=== PATIENT | male | born 1940 | race Caucasian/White ===

== ENCOUNTER 2019-06-22 20:06 | Emergency (ER) | payer MEDICARE, OTHER ==
[~2019-06-22] VITALS: Ht 193 cm; Wt 112.5 kg
[~2019-06-22 20:06] MED LIST: ASPI81CH PO; Bactrim Ds Tab1 EACH PO; CEPH500; CEPH500 PO; CIPR500 PO; DOXA4; EZET10; FINA5 PO; FISH1000 PO; GABA300; GLIP10 PO; GLUCOPHAGE; HYDR1TAB94 PO; INDERAL; INDO25 PO; INSLIS75I; JANUMET; LIRA0.6P PO; METF500; METF500 PO; NIAC500 PO; Norco 10-325 T1 EACH PO; OMEP20ER PO; Omeprazole20 M1 PO; RAMI1.25; RAMI5 PO; ROSI4; ROSU10TA; ROSU10TA PO; SENN187 PO; SULTRIDS PO; TAMS.4ER PO; VICTOZA
[2019-06-22] MEDS ORDERED: LIRA0.6P SC (20:22)
[2019-06-22 20:44] LABS: BASOPHILS ABSOLUTE AUTO 0.03 K/mm3 (0.00-0.23); BASOPHILS PERCENT AUTO 0 % (0-2); EOSINOPHILS ABSOLUTE AUTO 0.06 K/mm3 (0.00-0.68); EOSINOPHILS PERCENT AUTO 1 % (0-6); Hematocrit 50.9 % (37.0-53.0); Hemoglobin 16.3 g/dL (13.5-17.5); IMMATURE GRAN ABSOLUTE AUTO 0.04 K/mm3 (0.00-0.10); IMMATURE GRAN PERCENT AUTO 1 % (0-1); LYMPHOCYTES ABSOLUTE AUTO 1.07 K/mm3 (0.84-5.20); LYMPHOCYTES PERCENT AUTO 13 % (21-46); MONOCYTES ABSOLUTE AUTO 0.44 K/mm3 (0.16-1.47); MONOCYTES PERCENT AUTO 5 % (4-13); Mean Corpuscular HGB 28.7 pg (26.0-34.0); Mean Corpuscular Volume 90 fL (80-100); Mean Platelet Volume 9.1 fL (9.1-12.4); NEUTROPHILS ABSOLUTE AUTO 6.84 K/mm3 (1.96-9.15); NEUTROPHILS PERCENT AUTO 81 % (41-73); Platelet Count 154 K/mm3 (150-400); RDW Standard Deviation 46.2 fL (35.1-46.3); Red Blood Cell Count 5.68 M/mm3 (4.30-5.90); White Blood Cell Count 8.48 K/mm3 (4.00-11.30)
[2019-06-22 21:02] LABS: Alanine Aminotransfer (ALT/SGP 22 U/L (12-78); Albumin, Blood 3.8 g/dL (3.4-5.0); Alk Phos 94 U/L (50-136); Anion Gap 8 mmol/L (6-16); Aspartate Aminotrans (AST/SGOT 12 U/L (12-37); Bilirubin, Total 0.8 mg/dL (0.1-1.0); Blood Urea Nitrogen 17 mg/dL (8-24); Bun/Creatinine Ratio 23.1 (12.0-20.0); CO2, Blood 21 mmol/L (21-32); Calcium, Blood 9.7 mg/dL (8.5-10.1); Chloride, Blood 110 mmol/L (98-108); Creatinine, Blood 0.74 mg/dL (0.60-1.20); Globulin, Blood 3.7 g/dL (2.2-4.0); Glomerular Filtration Rate >60 (60-); Glucose, Blood 190 mg/dL (70-99); Potassium, Blood 3.9 mmol/L (3.5-5.5); Sodium, Blood 139 mmol/L (136-145); Total Protein, Blood 7.5 g/dL (6.4-8.2)
[2019-06-22] MEDS ORDERED: Zofran4 MG PO (22:07)
[2019-06-22] MEDS ORDERED: MOTION RELIEF25 MG PO (22:07)
== END 2019-06-22 22:30 | disposition home or self-care (01) ==
LOC: ER 20:06
PROVIDERS: Emergency Medicine
DX: H81.399 Other peripheral vertigo, unspecified ear (principal); I10 Essential (primary) hypertension; E11.9 Type 2 diabetes mellitus without complications; Z79.899 Other long term (current) drug therapy; Z79.84 Long term (current) use of oral hypoglycemic drugs; Z87.891 Personal history of nicotine dependence
CPT/HCPCS: 36415; 80053; 85025; 93005; 93010; 96374; 99284-25; J0780

== ENCOUNTER → 2019-11-04 | Outpatient (CLI) | payer MEDICARE, OTHER ==
[~2019-11-04] MED LIST changes: +LIRA0.6P SC; +MOTION RELIEF25 MG PO; +Zofran4 MG PO
== END ==
LOC: LAB EV 17:00 → LAB SHORT 17:00
DX: N30.00 Acute cystitis without hematuria (principal)
CPT/HCPCS: 87077; 87086; 87186

== ENCOUNTER → 2020-05-11 | Outpatient (CLI) | payer MEDICARE, OTHER ==
[2020-05-11 11:50] LABS: Source, Urine Clean Catch
[2020-05-11 11:57] LABS: Appearance, Urine Cloudy (Clear); Bilirubin, Urine Neg (Neg); Blood, Urine 1+ (Neg); Color, Urine Yellow (P-Yellow); Glucose Qualitative, Urine Neg (Normal); Ketones, Urine Neg (Neg); Leukocyte Esterase, Urine 2+ (Neg); Nitrite, Urine Pos (Neg); Protein, Urine Trace (Neg); Urobilinogen, Urine NORM (Normal)
[2020-05-11 12:10] LABS: Bacteria Mod /hpf; Mucus Light (0-Heavy); Squamous Epithelial Cells Rare /hpf (Few); White Blood Cells, Urine 50-100 /hpf (0-5)
[2020-05-11 12:11] LABS: Transitional Epithelial Cells Rare /hpf (0-Rare)
== END ==
LOC: LAB SHORT 10:30 → LAB EV 10:30
PROVIDERS: Physician Assistant
DX: R31.0 Gross hematuria (principal)
CPT/HCPCS: 81001; 87077; 87086; 87186

== ENCOUNTER 2020-07-20 13:42 | Inpatient (IN) | payer MEDICARE, OTHER ==
[~2020-07-20] VITALS: Ht 193 cm; Wt 112.2 kg
[~2020-07-20 13:42] MED LIST changes: -LIRA0.6P SC; -METF500 PO; -Omeprazole20 M1 PO
[2020-07-20 14:57] LABS: BASOPHILS ABSOLUTE AUTO 0.02 K/mm3 (0.00-0.23); BASOPHILS PERCENT AUTO 0 % (0-2); EOSINOPHILS ABSOLUTE AUTO 0.12 K/mm3 (0.00-0.68); EOSINOPHILS PERCENT AUTO 2 % (0-6); Hematocrit 46.5 % (37.0-53.0); Hemoglobin 14.1 g/dL (13.5-17.5); IMMATURE GRAN ABSOLUTE AUTO 0.02 K/mm3 (0.00-0.10); IMMATURE GRAN PERCENT AUTO 0 % (0-1); LYMPHOCYTES ABSOLUTE AUTO 1.39 K/mm3 (0.84-5.20); LYMPHOCYTES PERCENT AUTO 23 % (21-46); MONOCYTES ABSOLUTE AUTO 0.38 K/mm3 (0.16-1.47); MONOCYTES PERCENT AUTO 6 % (4-13); Mean Corpuscular HGB 27.2 pg (26.0-34.0); Mean Corpuscular HGB Conc 30.3 g/dL (31.5-36.5); Mean Corpuscular Volume 90 fL (80-100); Mean Platelet Volume 9.9 fL (9.1-12.4); NEUTROPHILS ABSOLUTE AUTO 4.12 K/mm3 (1.96-9.15); NEUTROPHILS PERCENT AUTO 68 % (41-73); Platelet Count 158 K/mm3 (150-400); RDW Coefficient Variation 14.6 % (11.7-14.2); RDW Standard Deviation 47.6 fL (35.1-46.3); Red Blood Cell Count 5.19 M/mm3 (4.30-5.90); White Blood Cell Count 6.05 K/mm3 (4.00-11.30)
[2020-07-20 15:02] LABS: Alanine Aminotransfer (ALT/SGP 14 U/L (12-78); Albumin, Blood 3.5 g/dL (3.4-5.0); Albumin/Globulin Ratio 1.1 (0.8-1.8); Alk Phos 72 U/L (50-136); Anion Gap 6 mmol/L (6-16); Aspartate Aminotrans (AST/SGOT 10 U/L (12-37); Bilirubin, Total 0.9 mg/dL (0.1-1.0); Blood Urea Nitrogen 14 mg/dL (8-24); Bun/Creatinine Ratio 14.2 (12.0-20.0); CO2, Blood 26 mmol/L (21-32); Calcium, Blood 9.2 mg/dL (8.5-10.1); Chloride, Blood 114 mmol/L (98-108); Creatinine, Blood 0.99 mg/dL (0.60-1.20); Globulin, Blood 3.3 g/dL (2.2-4.0); Glomerular Filtration Rate >60 (60-); Glucose, Blood 163 mg/dL (70-99); Potassium, Blood 4.1 mmol/L (3.5-5.5); Sodium, Blood 146 mmol/L (136-145); Total Protein, Blood 6.8 g/dL (6.4-8.2); Troponin I <0.015 ng/mL (0.000-0.040)
[2020-07-20] MEDS ORDERED: HYDROCODONE-AC1 EA10 PO (15:13)
[2020-07-20] MEDS ORDERED: VICTOZA 2-0.6 MG/0.1 SC (15:14)
[2020-07-20] MEDS ORDERED: TAMSULOSIN HCL0.4 M1 PO (15:15)
[2020-07-20] MEDS ORDERED: METF500C PO (15:16)
[2020-07-20] MEDS ORDERED: METFORMIN HCL500 M3 PO (15:16)
[2020-07-20] MEDS ORDERED: Omeprazole20 M1 PO (15:17)
[2020-07-20] MEDS ORDERED: Crestor20 MG PO (15:18)
[2020-07-20] MEDS ORDERED: LISINOPRIL2.5 MG PO (15:18)
[2020-07-20] MEDS ORDERED: GLIP10 PO (15:40)
[2020-07-20 16:03] LABS: Influenza A, PCR Negative (NEGATIVE); Influenza B, PCR Negative (NEGATIVE); Resp Syncytial Virus, PCR Negative (NEGATIVE); SARS-Cov-2 (COVID-19) PCR, MMC Negative (NEGATIVE)
[2020-07-21 03:51] LABS: BASOPHILS ABSOLUTE AUTO 0.02 K/mm3 (0.00-0.23); BASOPHILS PERCENT AUTO 0 % (0-2); EOSINOPHILS PERCENT AUTO 3 % (0-6); Hematocrit 41.4 % (37.0-53.0); Hemoglobin 12.9 g/dL (13.5-17.5); IMMATURE GRAN ABSOLUTE AUTO 0.02 K/mm3 (0.00-0.10); IMMATURE GRAN PERCENT AUTO 0 % (0-1); LYMPHOCYTES ABSOLUTE AUTO 1.67 K/mm3 (0.84-5.20); LYMPHOCYTES PERCENT AUTO 28 % (21-46); MONOCYTES ABSOLUTE AUTO 0.51 K/mm3 (0.16-1.47); MONOCYTES PERCENT AUTO 8 % (4-13); Mean Corpuscular HGB 27.6 pg (26.0-34.0); Mean Corpuscular HGB Conc 31.2 g/dL (31.5-36.5); Mean Corpuscular Volume 89 fL (80-100); Mean Platelet Volume 9.7 fL (9.1-12.4); NEUTROPHILS ABSOLUTE AUTO 3.66 K/mm3 (1.96-9.15); NEUTROPHILS PERCENT AUTO 60 % (41-73); Platelet Count 141 K/mm3 (150-400); RDW Coefficient Variation 14.6 % (11.7-14.2); RDW Standard Deviation 47.1 fL (35.1-46.3); Red Blood Cell Count 4.67 M/mm3 (4.30-5.90); White Blood Cell Count 6.08 K/mm3 (4.00-11.30)
[2020-07-21 04:12] LABS: Anion Gap 5 mmol/L (6-16); Blood Urea Nitrogen 15 mg/dL (8-24); CO2, Blood 26 mmol/L (21-32); Calcium, Blood 8.9 mg/dL (8.5-10.1); Chloride, Blood 113 mmol/L (98-108); Creatinine, Blood 0.94 mg/dL (0.60-1.20); Glomerular Filtration Rate >60 (60-); Glucose, Blood 146 mg/dL (70-99); Potassium, Blood 4.1 mmol/L (3.5-5.5); Sodium, Blood 144 mmol/L (136-145)
[2020-07-22] MEDS ORDERED: LISI20 PO (14:02)
[2020-07-22] MEDS ORDERED: NIFE30ER PO (14:05)
[2020-07-23 10:12] LABS: LYME IGG/IGM AB <0.91 ISR (0.00-0.90)
== END 2020-07-22 14:47 | disposition home or self-care (01) | DRG 242 ==
LOC: ER 13:42 → PCU 16:38
PROVIDERS: Emergency Medicine; ADMIT Internal Medicine
PROC: 0JH606Z Insertion of Pacemaker, Dual Chamber into Chest Subcutaneous Tissue and Fascia, Open Approach (ICD-10-PCS; principal; 2020-07-21)
PROC: 02HK3JZ Insertion of Pacemaker Lead into Right Ventricle, Percutaneous Approach (ICD-10-PCS; 2020-07-21)
PROC: 02H63JZ Insertion of Pacemaker Lead into Right Atrium, Percutaneous Approach (ICD-10-PCS; 2020-07-21)
PROC: 3E0102A Introduction of Anti-Infective Envelope into Subcutaneous Tissue, Open Approach (ICD-10-PCS; 2020-07-21)
DX: I44.2 Atrioventricular block, complete (principal); I50.33 Acute on chronic diastolic (congestive) heart failure; E11.9 Type 2 diabetes mellitus without complications; G47.00 Insomnia, unspecified; K21.9 Gastro-esophageal reflux disease without esophagitis; Z87.891 Personal history of nicotine dependence; Z79.84 Long term (current) use of oral hypoglycemic drugs; I27.20 Pulmonary hypertension, unspecified; I08.3 Combined rheumatic disorders of mitral, aortic and tricuspid valves; Z20.828 Contact with and (suspected) exposure to other viral communicable diseases; E78.5 Hyperlipidemia, unspecified; N40.1 Benign prostatic hyperplasia with lower urinary tract symptoms; R33.9 Retention of urine, unspecified; I11.0 Hypertensive heart disease with heart failure
CPT/HCPCS: 0241U; 33208; 36415; 51701; 71045; 71046; 76937; 80048; 80053; 82947; 83605; 83735; 83880; 84443; 84484; 85025; 86618; 87040; 93005; 93010; 93306; 94762; 96365; 96366; 99152; 99153; 99285-25; A9270; C1781; C1785; C1894; C1898; J0360; J0461; J0690; J1644; J2250; J3010; J3475; J7030; J7040

== ENCOUNTER 2020-09-18 16:04 | Inpatient (IN) | payer MEDICARE, OTHER ==
[~2020-09-18] VITALS: Ht 193 cm; Wt 108.5 kg
[~2020-09-18 16:04] MED LIST changes: +Crestor20 MG PO; +HYDROCODONE-AC1 EA10 PO; +LISI20 PO; +LISINOPRIL2.5 MG PO; +METF500C PO; +METFORMIN HCL500 M3 PO; +NIFE30ER PO; +Omeprazole20 M1 PO; +TAMSULOSIN HCL0.4 M1 PO; +VICTOZA 2-0.6 MG/0.1 SC
[2020-09-18 17:16] LABS: BASOPHILS ABSOLUTE AUTO 0.04 K/mm3 (0.00-0.23); BASOPHILS PERCENT AUTO 0 % (0-2); EOSINOPHILS ABSOLUTE AUTO 0.03 K/mm3 (0.00-0.68); EOSINOPHILS PERCENT AUTO 0 % (0-6); Hematocrit 46.2 % (37.0-53.0); Hemoglobin 14.5 g/dL (13.5-17.5); IMMATURE GRAN ABSOLUTE AUTO 0.07 K/mm3 (0.00-0.10); IMMATURE GRAN PERCENT AUTO 1 % (0-1); LYMPHOCYTES ABSOLUTE AUTO 1.67 K/mm3 (0.84-5.20); LYMPHOCYTES PERCENT AUTO 13 % (21-46); MONOCYTES ABSOLUTE AUTO 1.43 K/mm3 (0.16-1.47); MONOCYTES PERCENT AUTO 11 % (4-13); Mean Corpuscular HGB 27.5 pg (26.0-34.0); Mean Corpuscular HGB Conc 31.4 g/dL (31.5-36.5); Mean Corpuscular Volume 88 fL (80-100); Mean Platelet Volume 9.5 fL (9.1-12.4); NEUTROPHILS ABSOLUTE AUTO 9.36 K/mm3 (1.96-9.15); NEUTROPHILS PERCENT AUTO 74 % (41-73); Platelet Count 175 K/mm3 (150-400); RDW Coefficient Variation 15.4 % (11.7-14.2); RDW Standard Deviation 48.7 fL (35.1-46.3); Red Blood Cell Count 5.27 M/mm3 (4.30-5.90)
[2020-09-18 17:35] LABS: Alanine Aminotransfer (ALT/SGP 15 U/L (12-78); Albumin, Blood 3.6 g/dL (3.4-5.0); Albumin/Globulin Ratio 0.9 (0.8-1.8); Alk Phos 81 U/L (50-136); Anion Gap 8 mmol/L (6-16); Aspartate Aminotrans (AST/SGOT 15 U/L (12-37); Bilirubin, Total 1.2 mg/dL (0.1-1.0); Blood Urea Nitrogen 29 mg/dL (8-24); Bun/Creatinine Ratio 26.9 (12.0-20.0); CO2, Blood 22 mmol/L (21-32); Calcium, Blood 9.7 mg/dL (8.5-10.1); Chloride, Blood 105 mmol/L (98-108); Creatinine, Blood 1.08 mg/dL (0.60-1.20); Globulin, Blood 4.2 g/dL (2.2-4.0); Glomerular Filtration Rate >60 (60-); Glucose, Blood 152 mg/dL (70-99); Potassium, Blood 4.2 mmol/L (3.5-5.5); Sodium, Blood 135 mmol/L (136-145); Total Protein, Blood 7.8 g/dL (6.4-8.2); Troponin I <0.015 ng/mL (0.000-0.040)
[2020-09-18] MEDS ORDERED: ASCO500 PO (20:59)
[2020-09-18] MEDS ORDERED: THERA-D2000 UNIT PO (20:59)
[2020-09-18] MEDS ORDERED: MAGNESIUM OXID500 MG PO (21:00)
[2020-09-18] MEDS ORDERED: MULVITA PO (21:00)
[2020-09-18 23:27] LABS: Source, Urine Clean Catch
[2020-09-18 23:32] LABS: Appearance, Urine Cloudy (Clear); Bilirubin, Urine Neg (Neg); Blood, Urine 4+ (Neg); Color, Urine Yellow (P-Yellow); Glucose Qualitative, Urine Neg (Neg); Ketones, Urine 3+ (Neg); Leukocyte Esterase, Urine 3+ (Neg); Nitrite, Urine Pos (Neg); Protein, Urine 3+ (Neg); Urobilinogen, Urine NORM (Normal)
[2020-09-18 23:39] LABS: Red Blood Cells, Urine 0-2 /hpf (0-2); White Blood Cells, Urine TNTC /hpf (0-5)
[2020-09-18 23:40] LABS: Bacteria Many /hpf; Squamous Epithelial Cells Few /hpf (Few)
--- NOTE | 2020-09-19 00:02 | NUR ---
ATTEMPTED TO CALL CONSULT CALLED OFFICE OF CONSULTING ORTHO PHYSICIAN. NO ANSWERING SERVICE NUMBER PROVIDED. I WILL PASS THIS CONSULT CALL ON TO DAYSHIFT RN.
[2020-09-19 01:01] LABS: BASOPHILS ABSOLUTE AUTO 0.02 K/mm3 (0.00-0.23); BASOPHILS PERCENT AUTO 0 % (0-2); EOSINOPHILS PERCENT AUTO 0 % (0-6); Hematocrit 43.2 % (37.0-53.0); Hemoglobin 13.9 g/dL (13.5-17.5); IMMATURE GRAN ABSOLUTE AUTO 0.04 K/mm3 (0.00-0.10); IMMATURE GRAN PERCENT AUTO 0 % (0-1); LYMPHOCYTES PERCENT AUTO 9 % (21-46); MONOCYTES ABSOLUTE AUTO 0.93 K/mm3 (0.16-1.47); MONOCYTES PERCENT AUTO 10 % (4-13); Mean Corpuscular HGB 27.7 pg (26.0-34.0); Mean Corpuscular HGB Conc 32.2 g/dL (31.5-36.5); Mean Corpuscular Volume 86 fL (80-100); Mean Platelet Volume 8.8 fL (9.1-12.4); NEUTROPHILS ABSOLUTE AUTO 7.26 K/mm3 (1.96-9.15); NEUTROPHILS PERCENT AUTO 80 % (41-73); Platelet Count 149 K/mm3 (150-400); RDW Coefficient Variation 15.1 % (11.7-14.2); RDW Standard Deviation 47.8 fL (35.1-46.3); Red Blood Cell Count 5.01 M/mm3 (4.30-5.90); White Blood Cell Count 9.05 K/mm3 (4.00-11.30)
[2020-09-19 01:43] LABS: Alanine Aminotransfer (ALT/SGP 13 U/L (12-78); Albumin/Globulin Ratio 0.7 (0.8-1.8); Alk Phos 74 U/L (50-136); Anion Gap 9 mmol/L (6-16); Aspartate Aminotrans (AST/SGOT 8 U/L (12-37); Blood Urea Nitrogen 29 mg/dL (8-24); Bun/Creatinine Ratio 26.4 (12.0-20.0); CO2, Blood 22 mmol/L (21-32); CPK Creatine Kinase 131 U/L (39-308); Calcium, Blood 9.4 mg/dL (8.5-10.1); Chloride, Blood 105 mmol/L (98-108); Globulin, Blood 4.2 g/dL (2.2-4.0); Glomerular Filtration Rate >60 (60-); Glucose, Blood 159 mg/dL (70-99); Potassium, Blood 4.6 mmol/L (3.5-5.5); Sodium, Blood 136 mmol/L (136-145); Total Protein, Blood 7.2 g/dL (6.4-8.2); Troponin I <0.015 ng/mL (0.000-0.040)
--- NOTE | 2020-09-19 03:48 | NUR ---
ADMIT NOTE *LATE ENTRY* HANDOFF RECEIVED FROM ER NURSE JESUS. PT TRANSPORTED TO FLOOR VIA GURNEY. PT ORIENTED TO UNIT. TELEMETRY APPLIED TO PT. IV FLUIDS ARE INFUSING ORDERED. CALL BUTTON IS WITHIN REACH. PERSONAL POSSESSIONS IN ROOM WITH PT.
--- NOTE | 2020-09-19 04:04 | NUR ---
SHIFT SUMMARY ADMITTED FOR BILAT KNEE PAIN/IMMOBILITY THIS SHIFT. FULL CODE. TELEMETRY: PACED @ [address] IV PAIN MEDICATION AVAILABLE IN EMAR. PT HAS NOT BEEN ABLE TO AMBULATE SINCE DAY AFTER FALL, WHEN HE SAID HE "HYPEREXTENDED" BOTH OF HIS KNEES. CT SCAN REVEALED - NO FRACTURES, BILATERAL KNEE EFFUSIONS, ARTHRITIS. I COLLECTED UA THIS SHIFT, IT REVEALED - POSSIBLE UTI. ORTHO CONSULT WILL BE CALLED IN THE AM DURING OFFICE HOURS. NS INFUSING @ 75 ML/HR. HE HAS A HX OF BPH. HE IS EXPERIENCING FREQUENCY AND URGENCY. PLAN IS PAIN CONTROL AND PHYSICAL THERAPY.
[2020-09-19 08:17] LABS: CPK Creatine Kinase 138 U/L (39-308); Troponin I <0.015 ng/mL (0.000-0.040)
--- NOTE | 2020-09-19 19:33 | NUR ---
SHIFT SUMMARY: NO ACUTE CHANGES TO REPORT THIS SHIFT. PT A&O; CHITIMACHA; CALM AND COOEPRATIVE WITH CARE. MEDICATED FOR BILATERAL KNEEP PAIN PER EMAR; PT REPORTS GREAT RELIEF WITH TORADOL. ORTHO CONSULT (DR QUINONES) THIS SHIFT; NO INTERVENTIONS PLANNED. PHYSICAL THERAPY EVAL & TREAT THIS SHIFT; PT UP WITH 1-ASSIST & FWW. POSSIBLE UTI; IV ABX STARTED THIS SHIFT. REPORT GIVEN TO ONCOMING RN.
[2020-09-20] MEDS ORDERED: RAMI5 PO (01:05)
--- NOTE | 2020-09-20 04:05 | NUR ---
SHIFT SUMMARY A/O, ABLE TO MAKE NEEDS KNOWN. COOPERATIVE WITH CARE. ANSWERS QUESTIONS APPROPRIATELY. NO REQUIREMENT FOR PHARMACOLOGIC INTERVENTIONS; STATED BILATERAL KNEES SORE FROM THE FALL. UTILIZING URINAL AT BEDSIDE. VSS/AFEBRILE. PACEMAKER RUNNING LOW 100'S. APPEARED TO REST MUCH OF NIGHT. NO ACUTE CHANGES NOTED. BED REMAINS IN LOWEST POSITION. CALL LIGHT AND BELONGINGS WITHIN REACH. CONTINUE WITH CURRENT PLAN OF CARE. REPORT TO ONCOMING RN.
--- NOTE | 2020-09-20 13:03 | NUR ---
HE IS DISAPPOINTED TO FIND OUT HE HAS ESBL IN HIS URINE AND WILL NEED TO BE IN THE HOSPITAL LONGER. HE WAS HOPING TO GO HOME BECAUSE HIS KNEES FEEL BETTER. HIS CALLED AFTER HE SPOKE WITH HER AND MAY NOT COME TO VISIT BECAUSE OF HIS INFECTION. HE REQUIRE JUST SBA TO [place] IN THE ROOM WITH A WALKER AND A GAITBELT. HIS KNEES AND LOWER LEGS ARE SWOLLEN. NOTED THIS AND WILL REVIEW HIS CHART.
--- NOTE | 2020-09-20 15:28 | NUR ---
Upon receiving an admit referral for spiritual care, I visit patient. Patient tells me about his fall and the events that led to his hospitalization. Patient also talks about the complications surrounding his 's poor physical condition. Patient shares about his family, his career as a teacher at [employer] and the 18 holes of golf that he plays 3xs a wk. Patient explains about his orthodoxy beliefs and how he leans on his prayers at difficult times. Patient tells me his concerns about his rehabilitation. I normalize patient's experience, and provide companionship and therapeutic listening. I will continue to remain available to patient and family.
--- NOTE | 2020-09-20 17:28 | NUR ---
HE IS RESTING COMFORTABLY AFTER A ST. CAT AT 1605 THAT DRAINED 1100 MLS CLOUDY YELLOW URINE. IT WAS NOT MURKY URINE HE VOIDED IN THE URINAL EARLIER TODAY. HE HAD MENTIONED FREQUENCY EARLIER IN THE DAY, BUT THEN THIS AFTERNOON ALL OF A SUDDEN HE HAD SIGNIFICANT PAIN AND SAID HE COULDN'T VOID. BLADDER SCAN SHOWED GREATER THAN 999 MLS. ORDER RECEIVED AND PATIENT CATHED. THERE IS AN ORDER TO PLACE A MAC TONIGHT IF HE RETAINS AGAIN. HE SAYS THIS HAS HAPPENED TO HIM BEFORE. HE AND BOTH AGREE HIS KNESS ARE LESS SWOLLEN TODAY. SHE SAID NO NEED FOR ASPIRATION. HE CAN WALK WITH A WALKER, GAITBELT, AND SBA. HE DOES HAVE SWELLING FROM THE KNEES DOWN BILATERALLY. IV ROCEPHIN ONGOING. PUT IN ISOLATION TODAY FOR ESBL IN HIS URINE. TELE SHOWS ST, PACED IN THE LOW 100'S. HIS PACEMAKER WAS INTERROGATED TODAY. NO PROBLEMS. NO FEVER. HE FEELS GREAT RIGHT NOW. HE NEEDED TYLENOL TODAY FOR A H/A BUT NO TORADOL FOR HIS KNEES.
--- NOTE | 2020-09-20 23:38 | NUR ---
2200 PT LYING IN BED, REPORTS PELVIC PAIN OF 6-7/10. BLADDER SCAN DONE, NOT POST VOID, PT REPORTS UNABLE TO PEE AT THIS TIME, 496. WILL PLACE MAC PER DR'S ORDERS. TELE PACED AT 102 PER TELE HOSPITAL COORDINATOR. NO OTHER APPARENT SIGNS OF DISTRESS. CALL LIGHT IS IN REACH.
--- NOTE | 2020-09-21 00:31 | NUR ---
0005 PT REQUESTED AND RECIEVED PAIN MEDS, WILL EVAL FOR EFFECT. NO OTHER APPARENT SIGNS OF DISTRESS. CALL LIGHT IS IN REACH.
--- NOTE | 2020-09-21 03:42 | NUR ---
0200 PT LYING IN BED, EYES CLOSED, APPEARS TO BE RESTING. BREATHING IS EVEN, UNLABORED. NO APPARENT SIGNS OF DISTRESS. CALL LIGHT IS IN REACH.
--- NOTE | 2020-09-21 03:43 | NUR ---
PT LYING IN BED, EYES CLOSED, APPEARS TO BE RESTING. WAKES EASILY TO VERBAL STIMULI. NO APPARENT SIGNS OF DISTRESS. CALL LIGHT IS IN REACH.
--- NOTE | 2020-09-21 03:43 | NUR ---
PT IS AAO X 4, RAMPART-USES BILAT HEARING AIDES. ON RA. TELE PACED 100%. REPORTED PELVIC PAIN, BLADDER SCAN WAS 496, PT NOW HAS A MAC.
--- NOTE | 2020-09-21 06:07 | NUR ---
PT LYING IN BED, EYES CLOSED, APPEARS TO BE RESTING. WAKES EASILY TO VERBAL STIMULI. NO APPARENT SIGNS OF DISTRESS. DENIES NEED FOR ANYTHING AT THIS TIME. CALL LIGHT IS IN REACH. NO OTHER CHANGES THIS SHIFT.
--- NOTE | 2020-09-21 13:00 | NUR ---
HE HAS WORKED WELL WITH PT AND EVEN WALKED UP AND DOWN STEPS. HE HAS DENIED THE NEED FOR TORADOL OR TYLENOL SO FAR TODAY. ROUNDED. TELE DC'D. FLUID RESTRICTION STARTED AT LUNCH. IV LASIX GIVEN THIS AM WITH GOOD RESULTS. WILL GABRIELLE MAC THIS AFTERNOON. HE HAS BEEN UP FOR MEALS AND SHOWERED. CONTACT ISOLATION IN PLACE FOR ESBL IN THE URINE.
--- NOTE | 2020-09-21 16:21 | NUR ---
HE HAS BEEN WITHOUT COMPLAINTS. IV ANTIBIOTIC Q8 HRS FOR ESBL. ESTEFANIA DC'D AT 1445. NO VOID YET AND HOUR AND A HALF LATER. VSS. NO FEVER. IV LASIX VERY EFFECTIVE. FLUID RESTRICTION IN PLACE. EDEMA IN LEGS LOOKS LESS NOW THAN 24 HRS AGO. TELE DC'D TODAY. HE WORKED WELL WITH PT AND LATER, OT.
--- NOTE | 2020-09-22 05:49 | NUR ---
SHIFT SUMMARY NO ACUTE CHANGES TO REPORT THIS SHIFT. PT HAS RESTED MOST OF THE NIGHT. MEDICATED X1 FOR PAIN WITH TYLENOL WITH EFFECT FOR RIGHT KNEE PAIN. RIGHT KNEE REMAINS MORE SWOLLEN THEN LEFT. PT HAS BEEN INDEPENDENT WITH URINAL AT THE BEDSIDE AND HAS NOT HAD ANY ISSUES WITH URINARY RENTION THIS SHIFT. PT HAS FILLED URINAL X1 AND HAS STARTED TO FILL URINAL AGAIN WITH ABOUT 100 CC IN. PT ON FLUID RESTRICTION AND IS COMPLIANT. A/OX4, PLESANT WITH CARE. IV ABX PER ORDERS. BED IN LOWEST POSITION, CALL LIGHT WITHIN REACH.
--- NOTE | 2020-09-22 07:16 | NUR ---
ASSUMED CARE OF PT- EDSIDE REPORT COMPLETED WITH NIGHT RN PT SLEEPING AT THE TIME OF BEDSIDE REPORT. NO S&S OF DISTRESS. PT IN BED CALL LIGHT IN REACH BED IN LOW POSSITION.
--- NOTE | 2020-09-22 17:40 | NUR ---
SHIFT SUMMARY- PT HAS HAD NO ACUTE CHANGE T/O THE DAY. HE WORKED WITH THERAPY EARLY IN THE DAY. PT INDEPENDENTLY USES THE URINAL AT THE BEDSIDE, CALLS APPROPRIATELY FOR ASSISTANCE WITH AMBULATING TO THE BATHROOM. PT HAD A BM TODAY WELL. PAIN IS WELL MANAGED WITH PO TYLENOL PER PT. PLAN IS FOR PT TO SWITCH TO PO ABX TOMORROW AFTERNOON AND DC HOME. PT IV INFILTRATED THIS EVENING STUDENT FINANCIAL AID MANAGER AT THE BEDSIDE NOW ATTEMPTING ANOTHER IV START SO ABX CAN BE COMPLETED. PT IN BED, CALL LIGHT IN REACH NO S&S OF DISTRES AT THIS TIME. PT IS [place] HEARING AIDS AT THE BEDSIDE.
--- NOTE | 2020-09-22 17:49 | NUR ---
ADMIT: 09/18/20 DISCHARGE: DX: Bilateral knee pain CC: cpeabody ADMIT: 07/20/20 DISCHARGE: 07/22/20 DX: AV HEART BLOCK CELI CALL: PATIENT AT HOME RESIDENCE: Home CAREGIVER: EVIE MORSE [phone] DX: HTN, Chronic pain, obesity, HTN, type 2 DM, vertigo, see list DME: Dm supplies CCM: none HOME HEALTH: none SUMMARY: Admit 09/18/20 09/22/20 Reviewed PT assessment, no longer suggesting front wheel walker, no home health recommended. DR Alvarez ETA discharge . cp 09/20/20 Met with melvin Doyle, Dr Alvarez, added my name and number for care coordination. He lives home with his . PT note possible need for a walker at discharge, he does not have one at home. Interested in my ordering one. Dr Alvarez is treating him for an infection. will stay few more days before discharge. 1. 80-year-old male coming in with inability to walk due to severe bilateral knee pains after a fall 3 days ago. He has bilateral knee effusions, worse in the right.
--- NOTE | 2020-09-22 19:05 | NUR ---
ASSUMED CARE RECEIVED REPORT FROM GERMAN LOZA. PT RESTING COMFORTABLY, IN NO ACUTE DISTRESS; RESPS E/U. DENIES NEEDS AT THIS TIME. CALL LIGHT, POSSESSIONS IN REACH, BED IN LOW POSITION. CONTINUE TO MONITOR.
[2020-09-23 05:26] LABS: BASOPHILS ABSOLUTE AUTO 0.02 K/mm3 (0.00-0.23); BASOPHILS PERCENT AUTO 0 % (0-2); EOSINOPHILS ABSOLUTE AUTO 0.19 K/mm3 (0.00-0.68); EOSINOPHILS PERCENT AUTO 3 % (0-6); Hematocrit 44.2 % (37.0-53.0); Hemoglobin 14.2 g/dL (13.5-17.5); IMMATURE GRAN ABSOLUTE AUTO 0.03 K/mm3 (0.00-0.10); IMMATURE GRAN PERCENT AUTO 0 % (0-1); LYMPHOCYTES ABSOLUTE AUTO 1.48 K/mm3 (0.84-5.20); LYMPHOCYTES PERCENT AUTO 22 % (21-46); MONOCYTES ABSOLUTE AUTO 0.63 K/mm3 (0.16-1.47); MONOCYTES PERCENT AUTO 9 % (4-13); Mean Corpuscular HGB 27.3 pg (26.0-34.0); Mean Corpuscular HGB Conc 32.1 g/dL (31.5-36.5); Mean Corpuscular Volume 85 fL (80-100); Mean Platelet Volume 9.7 fL (9.1-12.4); NEUTROPHILS ABSOLUTE AUTO 4.54 K/mm3 (1.96-9.15); NEUTROPHILS PERCENT AUTO 66 % (41-73); Platelet Count 212 K/mm3 (150-400); RDW Coefficient Variation 15.2 % (11.7-14.2); RDW Standard Deviation 47.1 fL (35.1-46.3); Red Blood Cell Count 5.21 M/mm3 (4.30-5.90); White Blood Cell Count 6.89 K/mm3 (4.00-11.30)
[2020-09-23 05:57] LABS: Alanine Aminotransfer (ALT/SGP 29 U/L (12-78); Albumin/Globulin Ratio 0.7 (0.8-1.8); Alk Phos 85 U/L (50-136); Anion Gap 7 mmol/L (6-16); Aspartate Aminotrans (AST/SGOT 12 U/L (12-37); Bilirubin, Total 0.6 mg/dL (0.1-1.0); Blood Urea Nitrogen 27 mg/dL (8-24); Bun/Creatinine Ratio 30.6 (12.0-20.0); CO2, Blood 25 mmol/L (21-32); Chloride, Blood 107 mmol/L (98-108); Creatinine, Blood 0.88 mg/dL (0.60-1.20); Globulin, Blood 4.2 g/dL (2.2-4.0); Glomerular Filtration Rate >60 (60-); Glucose, Blood 328 mg/dL (70-99); Potassium, Blood 4.1 mmol/L (3.5-5.5); Sodium, Blood 139 mmol/L (136-145); Total Protein, Blood 7.2 g/dL (6.4-8.2)
--- NOTE | 2020-09-23 06:20 | NUR ---
SPOKE TO DR. LARSON REGARDING PT'S C/O BLADDER PAIN. ORDERS RECEIVED. CONTINUE TO MONITOR.
--- NOTE | 2020-09-23 07:15 | NUR ---
OPERATIONS COORDINATOR SUMMARY PT BACK TO BED FROM BATHROOM, NO ACUTE DISTRESS NOTED. VS REVIEWED,WNL. HAS SLEPT ON AND OFF THROUGH THE NIGHT. BLADDER SCANNED X1 FOR C/O BLADDER PAIN, WITH RESULT OF >310. VOIDING IN URINAL W/O DIFFICULTY. MEDICATED PER EMAR WITH EFFECTIVE RELIEF. NO OTHER ACUTE CHANGES IN CONDITION NOTED. PT DENIES FURTHER NEEDS AT THIS TIME. CALL LIGHT, POSSESSIONS IN REACH, REPORT GIVEN TO GERMAN LOZA.
[2020-09-23 11:39] LABS: Source, Urine Catheter
--- NOTE | 2020-09-23 11:41 | NUR ---
MAC CATHETER INSERTION WITH STUDENT RN COLLEEN SALVADOR MAC PLACEMENT 14 FR STERILE TECHNIQUE MAINTAINED. FLASH OBSERVED THEN ADVANCED 1 INCH FURTHER. PT TOLLERATED WELL, URINE SAMPLE OBTAINED PER UNIT PROTOCOL AND SENT TO LAB. PT TO DISCHARGE HOME WITH MAC CATH IN PLACE. URINE IS TEA COLORED AND DRAINING TO GRAVITY AT THIS TIME. BLADDER SCAN PRIOR TO PLACEMENT SHOWED GREATER THAN 999ML.
--- NOTE | 2020-09-23 12:18 | NUR ---
PT HAS HAD 1600ML OUT SINCE MAC CAH INSERTION URINE IS BRIGHT RED. CALLED HE IS AWARE. NO CLOTS NOTED, PT DENIES ANY ABDOMINAL PAIN SINCE MAC INSERTION.
[2020-09-23 12:29] LABS: Appearance, Urine Hazy (Clear); Bilirubin, Urine Neg (Neg); Blood, Urine 5+ (Neg); Color, Urine Yellow (P-Yellow); Glucose Qualitative, Urine 4+ (Neg); Ketones, Urine Neg (Neg); Leukocyte Esterase, Urine 1+ (Neg); Nitrite, Urine Neg (Neg); Protein, Urine 2+ (Neg); Specific Gravity, Urine 1.015 (1.003-1.022); Urobilinogen, Urine NORM (Normal)
[2020-09-23 13:01] LABS: Red Blood Cells, Urine TNTC /hpf (0-2)
[2020-09-23 13:02] LABS: Bacteria Few /hpf; Squamous Epithelial Cells Rare /hpf (Few)
--- NOTE | 2020-09-23 13:36 | NUR ---
CALLED DR ROSADO- PT URINE OUTPUT HAS BECOME DARKER RED, FROM THE INITIAL BRIGHT RED TO NOW TAM RED, NECK BAND SETTER NOTIFIED WELL. ORDER RECIEVED FOR BLADDER IRRIGATION FOR THE NEXT 6 HOURS, WELL CBC AND CHEM 8 FOR TOMORROW MORNING. PT NOW AC HS BG BG [address] ROSADO PT MEDICATED WITH 14 UNITS OF HUMALOG THEN WILL BE HIGH CORRECTION SCALE AC. HOLDING DISCHARGE FOR POSSIBLE DC TOMORROW.
--- NOTE | 2020-09-23 15:51 | NUR ---
PT MAC CATH EXCHANGED FOR THREE WAY CATH BY MATCHER LEATHER PARTS, IRRIGATION STARTED DARK RED URINE ALREADY APPEARS BETTER. WILL CTM.
--- NOTE | 2020-09-23 16:34 | NUR ---
PT URINE NOW CRANBERRY IN COLOR- FIRST BAG OF FLUSH COMPLETED (3000ML) PT HAD AN OUTPUT OF 3350ML ONLY 350 MORE FROM THE PT. RATE REDUCED TO A TRICKLE ON THE FLUSH TO PREVENT CLOTTING. WILL CTM. PT STILL DENIES ANY PAIN SINCE THE INSERTION OF THE CATH. VITALS REMAIN STABLE, BG HAS COME DOWN TO 26O'S. WILL MEDICATE PER INSULIN ORDER.
--- NOTE | 2020-09-23 18:17 | NUR ---
SHIFT SUMMARY- PT HAS CONTINUIOUS BLADDER IRRIGATION GOING FOR 6 HOURS STARTED AT APPROXIMATELY 1600 TODAY, IRRIGATION RATE TITRATED FOR LIGHT PINK URINE. IV ABX HAVE BEEN INFUSED T/O THE SHIFT. IV CURRENTLY SL IN THE RIGHT AC. PT WAS GOING TO DISCHARGE TODAY BUT DISCHARGE WAS HELD D/T PT BG NEARLY 400 ON MORNING LABS. PT HAD A MAC PLACED FOR URINARY RETENTION, SEE PREVIOUS NOTES FOR DETAILS BLADDER IRRIGATION SHOULD CONTINUE UNTIL 2200 WITH THE CURRENT ORDER. BG HAS INPROVED TO 268 PRIOR TO DINNER MEDICATED WITH CS INSULIN AND PO METFORMIN.
--- NOTE | 2020-09-23 19:05 | NUR ---
ASSUMED CARE RECEIVED REPORT FROM GERMAN LOZA. PT RESTING IN BED, CBI ONGOING. NO ACUTE DISTRESS NOTED. DENIES NEEDS. CALL LIGHT IN REACH, CONTINUE TO MONITOR.
--- NOTE | 2020-09-23 20:44 | NUR ---
CBI ONGOING, PT URINE PINK IN COLOR, FREE FROM CLOTS. DENIES BLADDER PAIN OR DISCOMFORT. CONTINUE TO MONITOR.
--- NOTE | 2020-09-23 21:49 | NUR ---
SUMMARY: Admit 09/18/20 09/23/[address] Alvarez, no d/c today, possible Sunday. Will go home with urinary cath, s/w Vivek about choice of home health companys, chose [facility] for nursing and PT, Contacted Francine at [facility] with referral. Patient would like a front wheel walker for discharge. Previous note from 09/22 is incorrect in my interputation on not needing fww. Patient choice [facility], will parachute order for delivery to hospital on Sunday prior to discharge. s/w , she would like me to arrange ride home by transport at discharge. cp
--- NOTE | 2020-09-23 22:20 | NUR ---
CBI STOPPED POST 6 HOURS PER ORDERS. POSITIVE URINE OUTPUT, URINE PINK IN COLOR, FREE FROM CLOTS. PT DENIES BLADDER PAIN OR DISCOMFORT. 3-WAY MAC PATENT AND DRAINING FREELY. WILL CONTINUE TO MONITOR URINE OUTPUT AND COLOR.
--- NOTE | 2020-09-24 02:47 | NUR ---
NOTIFIED DR. LARSON OF PT'S URINE HAVING TAM, RED BLOOD WITH BLOOD CLOTS. ORDERS RECEIVED TO RESUME CBI. WILL CONTINUE TO MONITOR PT'S URINE.
[2020-09-24 04:40] LABS: BASOPHILS ABSOLUTE AUTO 0.03 K/mm3 (0.00-0.23); BASOPHILS PERCENT AUTO 0 % (0-2); EOSINOPHILS PERCENT AUTO 6 % (0-6); Hematocrit 41.3 % (37.0-53.0); Hemoglobin 13.4 g/dL (13.5-17.5); IMMATURE GRAN ABSOLUTE AUTO 0.04 K/mm3 (0.00-0.10); IMMATURE GRAN PERCENT AUTO 1 % (0-1); LYMPHOCYTES ABSOLUTE AUTO 1.88 K/mm3 (0.84-5.20); LYMPHOCYTES PERCENT AUTO 26 % (21-46); MONOCYTES ABSOLUTE AUTO 0.59 K/mm3 (0.16-1.47); MONOCYTES PERCENT AUTO 8 % (4-13); Mean Corpuscular HGB 27.8 pg (26.0-34.0); Mean Corpuscular HGB Conc 32.4 g/dL (31.5-36.5); Mean Corpuscular Volume 86 fL (80-100); Mean Platelet Volume 8.9 fL (9.1-12.4); NEUTROPHILS ABSOLUTE AUTO 4.39 K/mm3 (1.96-9.15); NEUTROPHILS PERCENT AUTO 60 % (41-73); Platelet Count 174 K/mm3 (150-400); RDW Coefficient Variation 15.1 % (11.7-14.2); RDW Standard Deviation 47.5 fL (35.1-46.3); Red Blood Cell Count 4.82 M/mm3 (4.30-5.90); White Blood Cell Count 7.33 K/mm3 (4.00-11.30)
[2020-09-24 05:04] LABS: Anion Gap 7 mmol/L (6-16); Blood Urea Nitrogen 24 mg/dL (8-24); Bun/Creatinine Ratio 26.6 (12.0-20.0); CO2, Blood 27 mmol/L (21-32); Calcium, Blood 9.3 mg/dL (8.5-10.1); Chloride, Blood 108 mmol/L (98-108); Glomerular Filtration Rate >60 (60-); Glucose, Blood 209 mg/dL (70-99); Sodium, Blood 142 mmol/L (136-145)
--- NOTE | 2020-09-24 06:34 | NUR ---
TECHNICAL SOLUTIONS CONSULTANT SUMMARY PT RESTING, IN NO ACUTE DISTRESS. VS REVIEWED, WNL. SLEPT T/O MUCH OF THE NIGHT. MEDICATED X1 FOR C/O JUAN, WITH EFFECTIVE RELIEF. CBI RUNNING CONTINUOUSLY, PT TOLERATING WELL, 3-WAY MAC DRAINING PINK URINE, NO BLOOD CLOTS NOTED AT THIS TIME; PT DENIES BLADDER PAIN OR DISCOMFORT. NO OTHER ACUTE CHANGES IN CONDITION NOTED. DENIES NEEDS AT THIS TIME. CALL LIGHT, POSSESSIONS IN REACH, WILL REPORT OFF TO DAY RN.
[2020-09-24] MEDS ORDERED: NITR100CA PO (12:25)
--- NOTE | 2020-09-24 14:03 | NUR ---
PT AWAKE AT START OF SHIFT WITH CBI GOING. OUTPUT IN MAC BAG CRANBERRY AT START OF SHIFT. MAC CATH FLUSHED, WITH A FEW SM CLOTS REMOVED. URINE COLOR BECAME LIGHT PINK AND EVENTUALLY CL YELLOW BY LATE MORNING. DR ROSADO IN TO SEE PT AND DISCUSS PLAN OF CARE. PT WANTING TO GO HOME. D/C ORDERS PLACED. AMC TO REMAIN IN PLACE AT D/C UNTIL PT ABLE TO SEE OUTPT UROLOGY. PT VERBALIZED UNDERSTANDING AND REPORTED THAT HE HAS DONE THIS BEFORE. CBI STOPPED AND LEG BAG PLACED FOR D/C. XTRA BAG SENT FOR NIGHT TIME USE. PT VERY PLEASANT AND GRATEFUL FOR CARE. UP TO SHOWER AFTER BREAKFAST. PT REPORTED FALLING AT HOME AND HYPEREXTENDING BOTH KNEES. PT REPORTED SWELLING AND PAIN MUCH IMPROVED FROM ADMIT. PT NOW ABLE TO GET OOB ON HIS OWN AND AMBULATE TO BTHRM USING FWW. SBA TO SHOWER AND BACK. NO C/O PAIN. D/C INSTRUCTIONS DISCUSSED WITH PT; VERBALIZED UNDERSTANDING. TREASURY SPECIALIST HERE TO TALK TO PT AND INFORMED HIM OF ORDERED FWW TO BE DELIVERED AT HOME AND TX NOTIFIED FOR P/U HERE, WITH W/C TO TAKE PT HOME.
--- NOTE | 2020-09-24 17:32 | NUR ---
ADMIT: 09/18/20 DISCHARGE: 09/24/20 DX: Bilateral knee pain CC: cpeabody ADMIT: 07/20/20 DISCHARGE: 07/22/20 DX: AV HEART BLOCK CELI CALL: Call PATIENT or at home for celi RESIDENCE: Home CAREGIVER: EVIE MORSE [phone] DX: HTN, Chronic pain, obesity, HTN, type 2 DM, vertigo, see list DME: 09/24/20 Ordered front wheel walker from [facility] to be delivered to home. CCM: none HOME HEALTH: 09/23/20 [facility] for nurse and PT, called [facility] with referral. SUMMARY: Admit 09/18/20 09/24/20 Discharge home today by wheel chair transport. Has 2 steps at home he is concerned about walking up with out his new walker. Said he will use his cane if nessessary. [facility] will deliver front wheel walker to home this afternoon. Vivek did not want to wait for a hospital delivery of the walker. Ordered Nurse and PT home health from [facility]. Going home with urinary cath, I am told he already has appointment with urologist scheduled in [place]. Discussed transition of care call and follow up visit in 1 week. left discharge letter with my number, reviewed discharge check list. no addtional care needs at time of review. cp
== END 2020-09-24 13:54 | disposition home or self-care (01) | DRG 872 ==
LOC: ER 16:04 → MEDS 19:35 → ENPENDDIS 09-24 12:23 → MEDS 09-24 13:54
PROVIDERS: Internal Medicine; Physician Assistant; ADMIT Internal Medicine
DX: A41.59 Other Gram-negative sepsis (principal); N39.0 Urinary tract infection, site not specified; I44.2 Atrioventricular block, complete; Z16.12 Extended spectrum beta lactamase (ESBL) resistance; M17.0 Bilateral primary osteoarthritis of knee; N40.1 Benign prostatic hyperplasia with lower urinary tract symptoms; R33.8 Other retention of urine; I27.20 Pulmonary hypertension, unspecified; I10 Essential (primary) hypertension; E11.9 Type 2 diabetes mellitus without complications; K21.9 Gastro-esophageal reflux disease without esophagitis; Z95.0 Presence of cardiac pacemaker
CPT/HCPCS: 36415; 73562-LT; 73562-RT; 73701; 80048; 80053; 81001; 82550; 82947; 83605; 83880; 84484; 85025; 87077; 87086; 87186; 93005; 93010; 93280; 96374; 96375; 97110; 97116; 97161; 97165; 97530; 97535; 99284-25; A9270; J0696; J1170; J1650; J1885; J1940; J2185; J2270; J2405; J2930; J3010; J7030; J7050; Q9967

== ENCOUNTER → 2020-10-12 | Outpatient (CLI) | payer MEDICARE, OTHER ==
[~2020-10-12] MED LIST changes: +ASCO500 PO; +Acetaminophen325 M1 PO; +MAGNESIUM OXID500 MG PO; +MULVITA PO; +NITR100CA PO; +THERA-D2000 UNIT PO
[2020-10-12 09:07] LABS: Bacteria Many /hpf; Red Blood Cells, Urine 25-50 /hpf (0-2); Squamous Epithelial Cells Rare /hpf (Few); White Blood Cells, Urine TNTC /hpf (0-5)
== END ==
LOC: LAB SHORT 08:42 → LAB EV 08:42
PROVIDERS: Physician Assistant
DX: N39.0 Urinary tract infection, site not specified (principal); Z16.12 Extended spectrum beta lactamase (ESBL) resistance
CPT/HCPCS: 81015; 87077; 87086; 87186

== ENCOUNTER 2020-10-26 09:32 | Inpatient (IN) | payer MEDICARE, OTHER ==
[~2020-10-26] VITALS: Ht 182.9 cm; Wt 103.6 kg
[~2020-10-26 09:32] MED LIST changes: -Acetaminophen325 M1 PO
[2020-10-26 09:50] LABS: Calcium, Ionized (POC) 1.32 mmol/L (1.10-1.46); Chloride (POC) 112 mmol/L (98-108); Creatinine (POC) 2.2 mg/dL (0.8-1.3); Glucose (ISTAT POC) 151 mg/dL (70-99); Hemoglobin (POC) 10.9 g/dL (13.5-17.5); Potassium (POC) 6.9 mmol/L (3.5-5.5); Sodium (POC) 136 mmol/L (135-148); Total CO2 (POC) 18 mmol/L (21-32)
[2020-10-26 09:57] LABS: BASOPHILS ABSOLUTE AUTO 0.04 K/mm3 (0.00-0.23); BASOPHILS PERCENT AUTO 1 % (0-2); EOSINOPHILS ABSOLUTE AUTO 0.09 K/mm3 (0.00-0.68); EOSINOPHILS PERCENT AUTO 1 % (0-6); Hematocrit 33.5 % (37.0-53.0); Hemoglobin 10.2 g/dL (13.5-17.5); IMMATURE GRAN ABSOLUTE AUTO 0.05 K/mm3 (0.00-0.10); IMMATURE GRAN PERCENT AUTO 1 % (0-1); LYMPHOCYTES PERCENT AUTO 14 % (21-46); MONOCYTES ABSOLUTE AUTO 0.56 K/mm3 (0.16-1.47); MONOCYTES PERCENT AUTO 6 % (4-13); Mean Corpuscular HGB 26.9 pg (26.0-34.0); Mean Corpuscular HGB Conc 30.4 g/dL (31.5-36.5); Mean Corpuscular Volume 88 fL (80-100); Mean Platelet Volume 8.8 fL (9.1-12.4); NEUTROPHILS ABSOLUTE AUTO 6.93 K/mm3 (1.96-9.15); NEUTROPHILS PERCENT AUTO 78 % (41-73); Platelet Count 252 K/mm3 (150-400); RDW Coefficient Variation 16.5 % (11.7-14.2); RDW Standard Deviation 53.6 fL (35.1-46.3); Red Blood Cell Count 3.79 M/mm3 (4.30-5.90); White Blood Cell Count 8.87 K/mm3 (4.00-11.30)
[2020-10-26 10:30] LABS: Albumin, Blood 2.8 g/dL (3.4-5.0); Albumin/Globulin Ratio 0.7 (0.8-1.8); Bilirubin, Total 0.4 mg/dL (0.1-1.0); Bun/Creatinine Ratio 22.5 (12.0-20.0); Calcium, Blood 9.1 mg/dL (8.5-10.1); Globulin, Blood 4.3 g/dL (2.2-4.0); Total Protein, Blood 7.1 g/dL (6.4-8.2)
[2020-10-26 10:31] LABS: Potassium, Blood 7.2 mmol/L (3.5-5.5)
[2020-10-26] MEDS ORDERED: FINA5 PO (11:50)
--- NOTE | 2020-10-26 16:15 | NUR ---
MAC CATHETER PT C/O FEELING LIKE HE HAS TO VOID. THIS SHUTTLER CAR THE CATHER AND PT'S CATHETER IMMEDIATELY STARTED TO DRAIN. 1100 ML OF RED URINE DRAINED FROM BLADDER AFTER FIXING IT. WILL CONTINUE TO MONITOR DRAINAGE OF CATHETER. CALL LIGHT IN REACH.
[2020-10-26 18:05] LABS: Hematocrit 35.9 % (37.0-53.0); Hemoglobin 10.7 g/dL (13.5-17.5); Mean Corpuscular HGB 27.2 pg (26.0-34.0); Mean Corpuscular HGB Conc 29.8 g/dL (31.5-36.5); Mean Corpuscular Volume 91 fL (80-100); Mean Platelet Volume 8.5 fL (9.1-12.4); Platelet Count 219 K/mm3 (150-400); RDW Coefficient Variation 16.6 % (11.7-14.2); RDW Standard Deviation 55.9 fL (35.1-46.3); Red Blood Cell Count 3.93 M/mm3 (4.30-5.90); White Blood Cell Count 6.42 K/mm3 (4.00-11.30)
--- NOTE | 2020-10-26 18:15 | NUR ---
SHIFT SUMMARY PT A NEW ADMISSION THIS AFTERNOON FROM ED. PT ALERT AND ORIENTED X4. IVF INFUSING WITHOUT DIFFICULTY. PT'S CATHETER DRAINING RED URINE AND SOME CLOTS AT TIMES. PT'S CATHETER WAS NOT DRAINING EARLIER. THIS RN HAD TO DEFLATE BALLOON AND ADVANCE CATHETER MORE AND THIS RN ALSO FLUSHED CATHETER. MAC HAS BEEN DRAINING SINCE. NO COMPLAINTS OF PAIN. BLOOD SUGAR WAS LOW, IN 50'S. AFTER PT RECEIVING MULTIPLE APPLE JUICES, HALF A SANDWICH AND CHEESE, PT'S BLOOD SUGAR UP TO 117. NO DISTRESS AT THIS TIME. CALL LIGHT IN REACH. WILL CONTINUE TO MONITOR AND REPORT TO ONCOMING RN.
[2020-10-26 18:43] LABS: Calcium, Blood 9.4 mg/dL (8.5-10.1); Creatinine, Blood 1.52 mg/dL (0.60-1.20); Potassium, Blood 6.2 mmol/L (3.5-5.5)
--- NOTE | 2020-10-26 19:23 | NUR ---
CRITICAL POTASSIUM THIS RN CALLED KAYLA MUNGUIA AND DISCUSSED PT'S CRITICAL POTASSIUM OF 6.2. THIS RN ALSO DISCUSSED PT HAVING LOW BLOOD SUGARS AFTER ARRIVING TO THE FLOOR. ALEYDA PLACING ORDERS AT THIS TIME. CALL LIGHT IN REACH.
--- NOTE | 2020-10-26 21:01 | NUR ---
PT with critically high potassium recieved 500 ml ns bolus & is recieving calcium gluconate IV x 1 . His BG was 62 after dinner & he took 100% ensure & leonor pudding & BG was 103 repeat. He has tinoco cath placed at [place] for acute urinary retention & he has 1200 ml urine out with 1 clot of tissue appearing in floey bag. PT up with SBA to bathroom for BM. On tele monitor Paced at 80.
[2020-10-27 06:27] LABS: BASOPHILS ABSOLUTE AUTO 0.03 K/mm3 (0.00-0.23); BASOPHILS PERCENT AUTO 1 % (0-2); EOSINOPHILS ABSOLUTE AUTO 0.11 K/mm3 (0.00-0.68); EOSINOPHILS PERCENT AUTO 2 % (0-6); Hemoglobin 9.9 g/dL (13.5-17.5); IMMATURE GRAN ABSOLUTE AUTO 0.02 K/mm3 (0.00-0.10); IMMATURE GRAN PERCENT AUTO 0 % (0-1); LYMPHOCYTES PERCENT AUTO 23 % (21-46); MONOCYTES ABSOLUTE AUTO 0.48 K/mm3 (0.16-1.47); MONOCYTES PERCENT AUTO 8 % (4-13); Mean Corpuscular HGB Conc 30.9 g/dL (31.5-36.5); Mean Corpuscular Volume 87 fL (80-100); Mean Platelet Volume 8.9 fL (9.1-12.4); NEUTROPHILS ABSOLUTE AUTO 4.13 K/mm3 (1.96-9.15); NEUTROPHILS PERCENT AUTO 67 % (41-73); Platelet Count 231 K/mm3 (150-400); RDW Coefficient Variation 16.2 % (11.7-14.2); RDW Standard Deviation 51.5 fL (35.1-46.3); Red Blood Cell Count 3.67 M/mm3 (4.30-5.90); White Blood Cell Count 6.17 K/mm3 (4.00-11.30)
[2020-10-27 06:54] LABS: Alanine Aminotransfer (ALT/SGP 18 U/L (12-78); Albumin, Blood 2.5 g/dL (3.4-5.0); Albumin/Globulin Ratio 0.7 (0.8-1.8); Alk Phos 85 U/L (50-136); Anion Gap 4 mmol/L (6-16); Aspartate Aminotrans (AST/SGOT 10 U/L (12-37); Bilirubin, Total 0.4 mg/dL (0.1-1.0); Blood Urea Nitrogen 26 mg/dL (8-24); Bun/Creatinine Ratio 21.7 (12.0-20.0); CO2, Blood 19 mmol/L (21-32); Calcium, Blood 9.1 mg/dL (8.5-10.1); Chloride, Blood 117 mmol/L (98-108); Globulin, Blood 3.8 g/dL (2.2-4.0); Glomerular Filtration Rate >60 (60-); Glucose, Blood 99 mg/dL (70-99); Sodium, Blood 140 mmol/L (136-145); Total Protein, Blood 6.3 g/dL (6.4-8.2)
[2020-10-27 07:04] LABS: Potassium, Blood 6.8 mmol/L (3.5-5.5)
[2020-10-27 13:35] LABS: Hematocrit 36.5 % (37.0-53.0); Hemoglobin 11.3 g/dL (13.5-17.5)
[2020-10-27 14:14] LABS: Anion Gap 5 mmol/L (6-16); Blood Urea Nitrogen 21 mg/dL (8-24); Bun/Creatinine Ratio 18.1 (12.0-20.0); CO2, Blood 19 mmol/L (21-32); Calcium, Blood 9.4 mg/dL (8.5-10.1); Chloride, Blood 114 mmol/L (98-108); Creatinine, Blood 1.16 mg/dL (0.60-1.20); Glomerular Filtration Rate >60 (60-); Glucose, Blood 161 mg/dL (70-99); Potassium, Blood 6.2 mmol/L (3.5-5.5); Sodium, Blood 138 mmol/L (136-145)
[2020-10-27 15:51] LABS: Source, Urine Catheter
[2020-10-27 16:58] LABS: Appearance, Urine Bloody (Clear); Bilirubin, Urine Neg (Neg); Blood, Urine 5+ (Neg); Color, Urine Red (P-Yellow); Glucose Qualitative, Urine Neg (Neg); Ketones, Urine 1+ (Neg); Leukocyte Esterase, Urine 1+ (Neg); Nitrite, Urine Neg (Neg); Protein, Urine 4+ (Neg); Specific Gravity, Urine 1.015 (1.003-1.022); Urobilinogen, Urine NORM (Normal); pH, Urine 6.5 (5.0-8.0)
[2020-10-27 17:33] LABS: Bacteria Few /hpf; Red Blood Cells, Urine TNTC /hpf (0-2); Squamous Epithelial Cells Not Seen /hpf (Few)
--- NOTE | 2020-10-27 18:09 | NUR ---
ADMIT: 09/18/20 DISCHARGE: 09/24/20 DX: BILATERAL KNEE PAIN CC: CPEABODY ADMIT: 07/20/20 DISCHARGE: 07/22/20 DX: AV HEART BLOCK CELI CALL: CALL PATIENT OR AT HOME FOR CELI RESIDENCE: HOME CAREGIVER: EVIE MORSE [phone] DX: HTN, CHRONIC PAIN, OBESITY, HTN, TYPE 2 DM, VERTIGO, SEE LIST DME: 09/24/20 ORDERED FRONT WHEEL WALKER FROM [facility] TO BE DELIVERED TO HOME. CCM: NONE HOME HEALTH: 09/23/20 [facility] FOR NURSE AND PT, CALLED [facility] WITH REFERRAL. SUMMARY: Admit: 10/26/20 10/27/[address] Aponte, possible eta for Discharge Sunday, Needs follow up appointment middle of next week with Dr Varela for hemurturia and bladder obstruction. Will possibly go home with Cath. cp PLAN: 1. Hold home diabetic medications for now. Use low level sliding scale. Home diabetic medications will need to be decreased. 2. IV hydration with normal saline. 3. Monitor potassium with current regimen. 4. Hold KISHOR inhibitor. 5. Continue Flomax and finasteride. 6. We will treat with cefoxitin IV for now because of the patient's previous history of ESBL in culture, but I am not convinced this patient has urosepsis. 7. Hold all anti-inflammatory medications. The patient states he has only been taking aspirin at home intermittently.
--- NOTE | 2020-10-27 19:28 | NUR ---
SHIFT SUMMARY CONTINUOUS IRRIGATION FOR MAC CATHETER STARTED THIS SHIFT. PT CONTINUES TO HAVE BLOODY URINE. NO COMPLAINTS OF PAIN. IVF INFUSING WITHOUT DIFFICULTY. PT HAS HAD A GOOD APPETITE. POTASSIUM DOWN TO 6.[address] RUIZ AWARE. BLOOD SUGARS WNL. NO ACUTE CHANGES THIS SHIFT. CALL LIGHT IN REACH. REPORT GIVEN TO TRAM PORTER.
--- NOTE | 2020-10-27 20:42 | NUR ---
manual irrigation to maintain tinoco cath despite CBI. Spasm & urine leaking from new tinoco. Had seen urology DR Salazar in [place] & recent cystoscopy. Alert & up to bathroom after keyexalyte given for critically high potassium.
--- NOTE | 2020-10-27 22:14 | NUR ---
PT on CBI difficult to maintain patent tinoco due to clots. Manually irrigated several times to keep patent. Have drained more than 5000 ml from catheter since 1899. Discussed order with ATTORNEY LAWYER Radha Suarez & she said to parts data writer order clarification from nurse notify OK for CBI.
--- NOTE | 2020-10-28 02:22 | NUR ---
PT continues to need high flow CBI to prevent blockage of flow from Wall cath which was placed for acute urinary retention. Large irreg clots when cbi running able to drain from bladder. Continued on IV fluids & had critically high potassium several times yesterday.
[2020-10-28 08:19] LABS: BASOPHILS ABSOLUTE AUTO 0.03 K/mm3 (0.00-0.23); BASOPHILS PERCENT AUTO 1 % (0-2); EOSINOPHILS ABSOLUTE AUTO 0.15 K/mm3 (0.00-0.68); EOSINOPHILS PERCENT AUTO 3 % (0-6); Hemoglobin 10.2 g/dL (13.5-17.5); IMMATURE GRAN ABSOLUTE AUTO 0.02 K/mm3 (0.00-0.10); IMMATURE GRAN PERCENT AUTO 0 % (0-1); LYMPHOCYTES ABSOLUTE AUTO 1.15 K/mm3 (0.84-5.20); LYMPHOCYTES PERCENT AUTO 22 % (21-46); MONOCYTES ABSOLUTE AUTO 0.49 K/mm3 (0.16-1.47); MONOCYTES PERCENT AUTO 9 % (4-13); Mean Corpuscular HGB 26.9 pg (26.0-34.0); Mean Corpuscular HGB Conc 30.9 g/dL (31.5-36.5); Mean Corpuscular Volume 87 fL (80-100); Mean Platelet Volume 8.3 fL (9.1-12.4); NEUTROPHILS ABSOLUTE AUTO 3.51 K/mm3 (1.96-9.15); NEUTROPHILS PERCENT AUTO 66 % (41-73); Platelet Count 206 K/mm3 (150-400); RDW Coefficient Variation 16.2 % (11.7-14.2); RDW Standard Deviation 51.7 fL (35.1-46.3); Red Blood Cell Count 3.79 M/mm3 (4.30-5.90); White Blood Cell Count 5.35 K/mm3 (4.00-11.30)
[2020-10-28 10:50] LABS: Anion Gap 10 mmol/L (6-16); Blood Urea Nitrogen 15 mg/dL (8-24); Bun/Creatinine Ratio 15.8 (12.0-20.0); CO2, Blood 19 mmol/L (21-32); Calcium, Blood 9.3 mg/dL (8.5-10.1); Chloride, Blood 111 mmol/L (98-108); Creatinine, Blood 0.95 mg/dL (0.60-1.20); Glomerular Filtration Rate >60 (60-); Glucose, Blood 175 mg/dL (70-99); Potassium, Blood 5.4 mmol/L (3.5-5.5); Sodium, Blood 140 mmol/L (136-145)
[2020-10-28] MEDS ORDERED: Acetaminophen325 M1 PO (16:04)
--- NOTE | 2020-10-28 17:58 | NUR ---
SUMMARY: Admit: 10/26/20 10/28/20 Dsicharge home today, Dr Molina office will be contacting him at home to schedule appointment for next week. Discussed follow up appointment with CELI Dr in 1 week. Going home with a tinoco cath, refused home health services, says he knows how to take care of it.Did not identify any additional care needs, reviewed ecli letter and discharge check list. cp10/27/[address] Aponte, possible eta for Discharge Sunday,
--- NOTE | 2020-10-28 18:01 | NUR ---
PT INSTRUCTED ON LEG BAG AND DRAINAGE BAG FOR NIGHT TIME HE HAS HAD ONE BEFORE SO HE UNDERSTANDS THE CATHETER CARE AND BAGS HE HAS A DR IN [place] CHOW THAT HE IS SEEING HIM SOON. LEG BAG IS ON FOR DISCHARGE
--- NOTE | 2020-10-28 18:06 | NUR ---
10/28/[address]RIG[address] DC AND WAS REPLACED WITH 18 10 ML CATH WITH OUT ANY PROBLES MS A FEW SMALL CLOTS IN OLD MAC BAG
--- NOTE | 2020-10-28 18:29 | NUR ---
10/28/2020 1730 ESBL ISOLATION MAINTAINED DURING PROCEDURE OF MAC REPLACEMENT
--- NOTE | 2020-10-28 19:10 | NUR ---
DISCHARGE INSTRUCTIONS REVIEWED WITH PT. IV DC'D BY TRUCK BODY BUILDER AND CATHETER PLACED. INSTRUCTIONS FOR CATHETER CARE GIVEN AND IRRIGATION KIT AND STERILE WATER GIVEN FOR PT. PT DC'D HOME WITH SPOUSE.
== END 2020-10-28 18:48 | disposition home health service (06) | DRG 699 ==
LOC: ER 09:32 → MEDS 11:29
PROVIDERS: Emergency Medicine; ADMIT Family Medicine
DX: N32.0 Bladder-neck obstruction (principal); N13.30 Unspecified hydronephrosis; N17.9 Acute kidney failure, unspecified; D62 Acute posthemorrhagic anemia; N40.1 Benign prostatic hyperplasia with lower urinary tract symptoms; I10 Essential (primary) hypertension; R31.0 Gross hematuria; E87.5 Hyperkalemia; E86.0 Dehydration; E11.649 Type 2 diabetes mellitus with hypoglycemia without coma; K21.9 Gastro-esophageal reflux disease without esophagitis; E78.5 Hyperlipidemia, unspecified; Z96.652 Presence of left artificial knee joint; Z90.89 Acquired absence of other organs; Z98.890 Other specified postprocedural states; Z79.84 Long term (current) use of oral hypoglycemic drugs; Z79.899 Other long term (current) drug therapy
CPT/HCPCS: 36415; 51700; 51702; 76770; 80047; 80048; 80053; 81001; 82947; 85014; 85018; 85025; 85027; 87086; 93005; 93010; 96365; 96375; 99285-25; A9270; A9270-GY; J0610; J0694; J1815; J7030; J7040; J7042

== ENCOUNTER → 2020-10-26 | Outpatient (CLI) | payer MEDICARE, OTHER ==
[2020-10-26 08:22] LABS: BASOPHILS ABSOLUTE AUTO 0.04 K/mm3 (0.00-0.23); BASOPHILS PERCENT AUTO 0 % (0-2); EOSINOPHILS ABSOLUTE AUTO 0.13 K/mm3 (0.00-0.68); EOSINOPHILS PERCENT AUTO 1 % (0-6); Hemoglobin 10.9 g/dL (13.5-17.5); IMMATURE GRAN ABSOLUTE AUTO 0.04 K/mm3 (0.00-0.10); IMMATURE GRAN PERCENT AUTO 0 % (0-1); LYMPHOCYTES ABSOLUTE AUTO 1.13 K/mm3 (0.84-5.20); LYMPHOCYTES PERCENT AUTO 12 % (21-46); MONOCYTES ABSOLUTE AUTO 0.47 K/mm3 (0.16-1.47); MONOCYTES PERCENT AUTO 5 % (4-13); Mean Corpuscular HGB 27.2 pg (26.0-34.0); Mean Corpuscular HGB Conc 31.1 g/dL (31.5-36.5); Mean Corpuscular Volume 87 fL (80-100); Mean Platelet Volume 8.5 fL (9.1-12.4); NEUTROPHILS ABSOLUTE AUTO 7.41 K/mm3 (1.96-9.15); NEUTROPHILS PERCENT AUTO 80 % (41-73); Platelet Count 259 K/mm3 (150-400); RDW Coefficient Variation 16.7 % (11.7-14.2); RDW Standard Deviation 53.2 fL (35.1-46.3); Red Blood Cell Count 4.01 M/mm3 (4.30-5.90); White Blood Cell Count 9.22 K/mm3 (4.00-11.30)
[2020-10-26 08:41] LABS: Albumin/Globulin Ratio 0.7 (0.8-1.8); Bilirubin, Total 0.4 mg/dL (0.1-1.0); Bun/Creatinine Ratio 20.4 (12.0-20.0); Calcium, Blood 9.9 mg/dL (8.5-10.1); Creatinine, Blood 2.25 mg/dL (0.60-1.20); Globulin, Blood 4.4 g/dL (2.2-4.0); Thyroid Stimulating Hormone 1.698 uIU/mL (0.360-4.800); Total Protein, Blood 7.4 g/dL (6.4-8.2)
[2020-10-26 08:42] LABS: Potassium, Blood 7.3 mmol/L (3.5-5.5)
== END ==
LOC: LAB SHORT 08:05
PROVIDERS: Physician Assistant
DX: N39.0 Urinary tract infection, site not specified (principal); N40.0 Benign prostatic hyperplasia without lower urinary tract symptoms; R53.83 Other fatigue
CPT/HCPCS: 80053; 84443; 85025; 87086

== ENCOUNTER 2020-10-30 13:43 | Emergency (ER) | payer MEDICARE, OTHER ==
[~2020-10-30] VITALS: Ht 193 cm; Wt 104.3 kg
[2020-10-30 14:42] LABS: BASOPHILS ABSOLUTE AUTO 0.03 K/mm3 (0.00-0.23); BASOPHILS PERCENT AUTO 0 % (0-2); EOSINOPHILS ABSOLUTE AUTO 0.32 K/mm3 (0.00-0.68); EOSINOPHILS PERCENT AUTO 5 % (0-6); Hematocrit 32.5 % (37.0-53.0); IMMATURE GRAN ABSOLUTE AUTO 0.04 K/mm3 (0.00-0.10); IMMATURE GRAN PERCENT AUTO 1 % (0-1); LYMPHOCYTES PERCENT AUTO 23 % (21-46); MONOCYTES ABSOLUTE AUTO 0.52 K/mm3 (0.16-1.47); MONOCYTES PERCENT AUTO 7 % (4-13); Mean Corpuscular HGB Conc 30.8 g/dL (31.5-36.5); Mean Corpuscular Volume 88 fL (80-100); Mean Platelet Volume 8.8 fL (9.1-12.4); NEUTROPHILS ABSOLUTE AUTO 4.59 K/mm3 (1.96-9.15); NEUTROPHILS PERCENT AUTO 65 % (41-73); Platelet Count 224 K/mm3 (150-400); RDW Coefficient Variation 16.5 % (11.7-14.2); RDW Standard Deviation 52.3 fL (35.1-46.3)
[2020-10-30 15:07] LABS: Albumin/Globulin Ratio 0.7 (0.8-1.8); Bilirubin, Total 0.4 mg/dL (0.1-1.0); Bun/Creatinine Ratio 30.1 (12.0-20.0); Creatinine, Blood 1.33 mg/dL (0.60-1.20); Globulin, Blood 4.1 g/dL (2.2-4.0); Potassium, Blood 4.8 mmol/L (3.5-5.5); Total Protein, Blood 7.1 g/dL (6.4-8.2)
== END 2020-10-30 19:58 | disposition home or self-care (01) ==
LOC: ER 13:43
PROVIDERS: Physician Assistant
DX: R33.9 Retention of urine, unspecified (principal); I10 Essential (primary) hypertension; E11.9 Type 2 diabetes mellitus without complications; K21.9 Gastro-esophageal reflux disease without esophagitis; E78.5 Hyperlipidemia, unspecified; Z79.899 Other long term (current) drug therapy; Z79.01 Long term (current) use of anticoagulants
CPT/HCPCS: 36415; 51700; 51702; 51798; 80053; 82947; 85025; 99283-25; A9270

== ENCOUNTER → 2020-10-30 | Outpatient (CLI) | payer MEDICARE, OTHER ==
[~2020-10-30] MED LIST changes: +Acetaminophen325 M1 PO
[2020-10-30 10:49] LABS: Source, Urine Catheter
[2020-10-30 10:51] LABS: BASOPHILS ABSOLUTE AUTO 0.04 K/mm3 (0.00-0.23); BASOPHILS PERCENT AUTO 1 % (0-2); EOSINOPHILS ABSOLUTE AUTO 0.26 K/mm3 (0.00-0.68); EOSINOPHILS PERCENT AUTO 4 % (0-6); Hematocrit 31.7 % (37.0-53.0); Hemoglobin 9.9 g/dL (13.5-17.5); IMMATURE GRAN ABSOLUTE AUTO 0.04 K/mm3 (0.00-0.10); IMMATURE GRAN PERCENT AUTO 1 % (0-1); LYMPHOCYTES ABSOLUTE AUTO 1.43 K/mm3 (0.84-5.20); LYMPHOCYTES PERCENT AUTO 20 % (21-46); MONOCYTES ABSOLUTE AUTO 0.48 K/mm3 (0.16-1.47); MONOCYTES PERCENT AUTO 7 % (4-13); Mean Corpuscular HGB 27.2 pg (26.0-34.0); Mean Corpuscular HGB Conc 31.2 g/dL (31.5-36.5); Mean Corpuscular Volume 87 fL (80-100); Mean Platelet Volume 8.9 fL (9.1-12.4); NEUTROPHILS ABSOLUTE AUTO 4.75 K/mm3 (1.96-9.15); NEUTROPHILS PERCENT AUTO 68 % (41-73); Platelet Count 221 K/mm3 (150-400); RDW Coefficient Variation 16.6 % (11.7-14.2); RDW Standard Deviation 52.6 fL (35.1-46.3); Red Blood Cell Count 3.64 M/mm3 (4.30-5.90)
[2020-10-30 11:01] LABS: Albumin, Blood 2.8 g/dL (3.4-5.0); Albumin/Globulin Ratio 0.7 (0.8-1.8); Bilirubin, Total 0.3 mg/dL (0.1-1.0); Bun/Creatinine Ratio 24.2 (12.0-20.0); Calcium, Blood 8.7 mg/dL (8.5-10.1); Creatinine, Blood 1.86 mg/dL (0.60-1.20); Globulin, Blood 4.1 g/dL (2.2-4.0); Potassium, Blood 5.3 mmol/L (3.5-5.5); Total Protein, Blood 6.9 g/dL (6.4-8.2)
[2020-10-30 11:07] LABS: Bacteria Rare /hpf; Squamous Epithelial Cells Not Seen /hpf (Few)
== END | disposition home or self-care (01) ==
LOC: LAB EV 10:46 → LAB SHORT 10:46
PROVIDERS: General Practice
DX: R33.9 Retention of urine, unspecified (principal)
CPT/HCPCS: 80053; 81015; 85025; 87086

== ENCOUNTER 2020-11-30 10:11 | Day surgery (SDC) | payer MEDICARE, OTHER ==
[~2020-11-30] VITALS: Ht 193 cm; Wt 102.2 kg
== END 2020-11-30 11:16 | disposition home or self-care (01) ==
LOC: ORSCSDS 10:11
PROVIDERS: Anesthesiology
PROC: 3E0R33Z Introduction of Anti-inflammatory into Spinal Canal, Percutaneous Approach (ICD-10-PCS; principal; 2020-11-30 11:15)
DX: M51.16 Intervertebral disc disorders with radiculopathy, lumbar region (principal); M54.5 Low back pain; E11.9 Type 2 diabetes mellitus without complications; Z79.899 Other long term (current) drug therapy; Z79.84 Long term (current) use of oral hypoglycemic drugs
CPT/HCPCS: 82947; J1040

== ENCOUNTER → 2020-12-09 | Outpatient (CLI) | payer MEDICARE, OTHER | LOC: LAB 11:12 → LAB SHORT 11:12 | DX: N32.0 Bladder-neck obstruction (principal); N40.1 Benign prostatic hyperplasia with lower urinary tract symptoms; R31.0 Gross hematuria | CPT/HCPCS: 87086 ==

== ENCOUNTER → 2021-03-23 | Outpatient (CLI) | payer MEDICARE, OTHER | LOC: LAB 14:43 → LAB SHORT 14:43 | DX: N39.0 Urinary tract infection, site not specified (principal) | CPT/HCPCS: 87077; 87086; 87186 ==

== ENCOUNTER 2021-06-05 10:44 | Emergency (ER) | payer MEDICARE, OTHER ==
[~2021-06-05] VITALS: Ht 190.5 cm; Wt 105.2 kg
[~2021-06-05 10:44] MED LIST changes: -AMOCLA875 PO; -EXCEDRIN; -Norco 7.5-3251 EACH PO; -ONDA4ODT MM
[2021-06-05] MEDS ORDERED: LISI20 PO (10:54)
[2021-06-05 11:00] LABS: BASOPHILS ABSOLUTE AUTO 0.03 K/mm3 (0.00-0.23); BASOPHILS PERCENT AUTO 0 % (0-2); EOSINOPHILS ABSOLUTE AUTO 0.07 K/mm3 (0.00-0.68); EOSINOPHILS PERCENT AUTO 1 % (0-6); Hematocrit 39.5 % (37.0-53.0); Hemoglobin 12.5 g/dL (13.5-17.5); IMMATURE GRAN ABSOLUTE AUTO 0.05 K/mm3 (0.00-0.10); IMMATURE GRAN PERCENT AUTO 1 % (0-1); LYMPHOCYTES ABSOLUTE AUTO 0.84 K/mm3 (0.84-5.20); LYMPHOCYTES PERCENT AUTO 10 % (21-46); MONOCYTES ABSOLUTE AUTO 0.63 K/mm3 (0.16-1.47); MONOCYTES PERCENT AUTO 7 % (4-13); Mean Corpuscular HGB 28.9 pg (26.0-34.0); Mean Corpuscular HGB Conc 31.6 g/dL (31.5-36.5); Mean Corpuscular Volume 91 fL (80-100); Mean Platelet Volume 9.9 fL (9.1-12.4); NEUTROPHILS ABSOLUTE AUTO 6.97 K/mm3 (1.96-9.15); NEUTROPHILS PERCENT AUTO 81 % (41-73); Platelet Count 143 K/mm3 (150-400); RDW Coefficient Variation 14.7 % (11.7-14.2); RDW Standard Deviation 49.9 fL (35.1-46.3); Red Blood Cell Count 4.32 M/mm3 (4.30-5.90); White Blood Cell Count 8.59 K/mm3 (4.00-11.30)
[2021-06-05 11:12] LABS: Alanine Aminotransfer (ALT/SGP 16 U/L (12-78); Albumin, Blood 2.9 g/dL (3.4-5.0); Albumin/Globulin Ratio 0.8 (0.8-1.8); Alk Phos 75 U/L (50-136); Anion Gap 5 mmol/L (6-16); Aspartate Aminotrans (AST/SGOT 11 U/L (12-37); Bilirubin, Total 0.7 mg/dL (0.1-1.0); Blood Urea Nitrogen 25 mg/dL (8-24); Bun/Creatinine Ratio 21.9 (12.0-20.0); CO2, Blood 23 mmol/L (21-32); Calcium, Blood 8.6 mg/dL (8.5-10.1); Chloride, Blood 112 mmol/L (98-108); Creatinine, Blood 1.14 mg/dL (0.60-1.20); Globulin, Blood 3.8 g/dL (2.2-4.0); Glomerular Filtration Rate >60 (60-); Glucose, Blood 230 mg/dL (70-99); Potassium, Blood 4.5 mmol/L (3.5-5.5); Sodium, Blood 140 mmol/L (136-145); Total Protein, Blood 6.7 g/dL (6.4-8.2)
[2021-06-05 11:14] LABS: Source, Urine Catheter
[2021-06-05 11:24] LABS: Appearance, Urine Cloudy (Clear); Bilirubin, Urine Neg (Neg); Blood, Urine 4+ (Neg); Color, Urine Yellow (P-Yellow); Glucose Qualitative, Urine Neg (Neg); Ketones, Urine 1+ (Neg); Leukocyte Esterase, Urine 3+ (Neg); Nitrite, Urine Pos (Neg); Protein, Urine 3+ (Neg); Urobilinogen, Urine NORM (Normal)
[2021-06-05 11:31] LABS: Squamous Epithelial Cells Mod /hpf (Few); White Blood Cells, Urine TNTC /hpf (0-5)
[2021-06-05 11:32] LABS: Bacteria Many /hpf; Hyaline Casts 0-2 /lpf (0-2); Mucus Mod (0-Heavy)
[2021-06-05] MEDS ORDERED: Bactrim Ds Tab1 EACH PO (11:56)
[2021-06-05] MEDS ORDERED: AMOCLA875 PO (11:56)
== END 2021-06-05 12:55 | disposition home or self-care (01) ==
LOC: ER 10:44
PROVIDERS: Emergency Medicine
DX: N45.1 Epididymitis (principal); N39.0 Urinary tract infection, site not specified; I10 Essential (primary) hypertension; E11.9 Type 2 diabetes mellitus without complications; K21.9 Gastro-esophageal reflux disease without esophagitis; N40.0 Benign prostatic hyperplasia without lower urinary tract symptoms; Z79.899 Other long term (current) drug therapy; Z79.84 Long term (current) use of oral hypoglycemic drugs
CPT/HCPCS: 76870; 80053; 81001; 85025; 87077; 87086; 87186; 96365; 96375; 99284-25; J0295; J1885

== ENCOUNTER → 2021-06-05 | Outpatient (CLI) | payer MEDICARE, OTHER ==
[~2021-06-05] MED LIST changes: +AMOCLA875 PO; +EXCEDRIN; +Norco 7.5-3251 EACH PO; +ONDA4ODT MM
[2021-06-05 10:23] LABS: BASOPHILS ABSOLUTE AUTO 0.03 K/mm3 (0.00-0.23); BASOPHILS PERCENT AUTO 0 % (0-2); EOSINOPHILS ABSOLUTE AUTO 0.12 K/mm3 (0.00-0.68); EOSINOPHILS PERCENT AUTO 1 % (0-6); Hematocrit 41.9 % (37.0-53.0); Hemoglobin 13.4 g/dL (13.5-17.5); IMMATURE GRAN ABSOLUTE AUTO 0.05 K/mm3 (0.00-0.10); IMMATURE GRAN PERCENT AUTO 1 % (0-1); LYMPHOCYTES ABSOLUTE AUTO 1.26 K/mm3 (0.84-5.20); LYMPHOCYTES PERCENT AUTO 12 % (21-46); MONOCYTES ABSOLUTE AUTO 0.84 K/mm3 (0.16-1.47); MONOCYTES PERCENT AUTO 8 % (4-13); Mean Corpuscular HGB 29.1 pg (26.0-34.0); Mean Corpuscular Volume 91 fL (80-100); Mean Platelet Volume 9.4 fL (9.1-12.4); NEUTROPHILS ABSOLUTE AUTO 8.41 K/mm3 (1.96-9.15); NEUTROPHILS PERCENT AUTO 79 % (41-73); Platelet Count 145 K/mm3 (150-400); RDW Coefficient Variation 14.9 % (11.7-14.2); RDW Standard Deviation 49.6 fL (35.1-46.3); Red Blood Cell Count 4.61 M/mm3 (4.30-5.90); White Blood Cell Count 10.71 K/mm3 (4.00-11.30)
[2021-06-05 10:49] LABS: Alanine Aminotransfer (ALT/SGP 20 U/L (12-78); Albumin, Blood 3.5 g/dL (3.4-5.0); Albumin/Globulin Ratio 0.9 (0.8-1.8); Alk Phos 84 U/L (40-126); Anion Gap 9 mmol/L (6-16); Aspartate Aminotrans (AST/SGOT 7 U/L (12-37); Bilirubin, Total 0.8 mg/dL (0.1-1.0); Blood Urea Nitrogen 27 mg/dL (8-24); Bun/Creatinine Ratio 19.4 (12.0-20.0); CO2, Blood 24 mmol/L (21-32); Calcium, Blood 9.7 mg/dL (8.5-10.1); Chloride, Blood 105 mmol/L (98-108); Creatinine, Blood 1.39 mg/dL (0.60-1.20); Globulin, Blood 3.8 g/dL (2.2-4.0); Glomerular Filtration Rate 49 (60-); Glucose, Blood 267 mg/dL (70-99); Potassium, Blood 4.7 mmol/L (3.5-5.5); Sodium, Blood 138 mmol/L (136-145); Total Protein, Blood 7.3 g/dL (6.4-8.2)
[2021-06-05 10:53] LABS: Troponin I <0.017 ng/mL (0.000-0.040)
== END ==
LOC: LAB SHORT 10:18
PROVIDERS: General Practice
DX: N39.0 Urinary tract infection, site not specified (principal); I45.9 Conduction disorder, unspecified; R53.81 Other malaise
CPT/HCPCS: 80053; 84443; 84484; 85025; 87077; 87086; 87186

== ENCOUNTER 2021-06-12 08:24 | Emergency (ER) | payer MEDICARE, OTHER ==
[~2021-06-12] VITALS: Ht 193 cm; Wt 104.3 kg
[~2021-06-12 08:24] MED LIST changes: +AMOCLA875 PO
[2021-06-12 09:20] LABS: BASOPHILS ABSOLUTE AUTO 0.02 K/mm3 (0.00-0.23); BASOPHILS PERCENT AUTO 0 % (0-2); EOSINOPHILS ABSOLUTE AUTO 0.09 K/mm3 (0.00-0.68); EOSINOPHILS PERCENT AUTO 1 % (0-6); Hematocrit 37.7 % (37.0-53.0); Hemoglobin 12.2 g/dL (13.5-17.5); IMMATURE GRAN ABSOLUTE AUTO 0.05 K/mm3 (0.00-0.10); IMMATURE GRAN PERCENT AUTO 1 % (0-1); LYMPHOCYTES ABSOLUTE AUTO 1.01 K/mm3 (0.84-5.20); LYMPHOCYTES PERCENT AUTO 14 % (21-46); MONOCYTES ABSOLUTE AUTO 0.52 K/mm3 (0.16-1.47); MONOCYTES PERCENT AUTO 7 % (4-13); Mean Corpuscular HGB 28.6 pg (26.0-34.0); Mean Corpuscular HGB Conc 32.4 g/dL (31.5-36.5); Mean Corpuscular Volume 89 fL (80-100); Mean Platelet Volume 9.4 fL (9.1-12.4); NEUTROPHILS ABSOLUTE AUTO 5.51 K/mm3 (1.96-9.15); NEUTROPHILS PERCENT AUTO 77 % (41-73); Platelet Count 202 K/mm3 (150-400); RDW Coefficient Variation 14.4 % (11.7-14.2); RDW Standard Deviation 46.4 fL (35.1-46.3); Red Blood Cell Count 4.26 M/mm3 (4.30-5.90)
[2021-06-12 09:35] LABS: Anion Gap 8 mmol/L (6-16); Blood Urea Nitrogen 21 mg/dL (8-24); Bun/Creatinine Ratio 18.4 (12.0-20.0); CO2, Blood 19 mmol/L (21-32); Calcium, Blood 10.1 mg/dL (8.5-10.1); Chloride, Blood 111 mmol/L (98-108); Creatinine, Blood 1.14 mg/dL (0.60-1.20); Glomerular Filtration Rate >60 (60-); Glucose, Blood 222 mg/dL (70-99); Potassium, Blood 4.8 mmol/L (3.5-5.5); Sodium, Blood 138 mmol/L (136-145)
[2021-06-12 10:16] LABS: Source, Urine Catheter
[2021-06-12 10:24] LABS: Appearance, Urine Hazy (Clear); Bilirubin, Urine Neg (Neg); Blood, Urine 1+ (Neg); Color, Urine Yellow (P-Yellow); Glucose Qualitative, Urine Neg (Neg); Ketones, Urine 1+ (Neg); Leukocyte Esterase, Urine 3+ (Neg); Nitrite, Urine Neg (Neg); Protein, Urine 2+ (Neg); Urobilinogen, Urine NORM (Normal)
[2021-06-12 10:35] LABS: Bacteria Few /hpf; Mucus Light (0-Heavy); Squamous Epithelial Cells Mod /hpf (Few); White Blood Cells, Urine 50-100 /hpf (0-5)
[2021-06-12] MEDS ORDERED: ONDA4ODT MM (11:43)
[2021-06-12] MEDS ORDERED: Norco 7.5-3251 EACH PO (11:43)
[2021-06-13] MEDS ORDERED: EXCEDRIN (11:24)
== END 2021-06-12 12:24 | disposition home or self-care (01) ==
LOC: ER 08:24
PROVIDERS: Emergency Medicine
DX: N45.3 Epididymo-orchitis (principal); Z79.899 Other long term (current) drug therapy; I10 Essential (primary) hypertension; E11.9 Type 2 diabetes mellitus without complications; E78.00 Pure hypercholesterolemia, unspecified
CPT/HCPCS: 36415; 76870; 80048; 81001; 85025; 87086; 96365; 99284-25; A9270; J1335

== ENCOUNTER 2021-06-13 09:19 | Day surgery (SDC) | payer MEDICARE, OTHER ==
[~2021-06-13 09:19] MED LIST changes: +Norco 7.5-3251 EACH PO; +ONDA4ODT MM
[2021-06-13] MEDS ORDERED: EXCEDRIN (11:24)
== END 2021-06-13 11:23 | disposition home or self-care (01) ==
LOC: ATC 09:19
DX: N45.3 Epididymo-orchitis (principal)
CPT/HCPCS: 96365; J1335

== ENCOUNTER 2021-06-14 02:55 | Day surgery (SDC) | payer MEDICARE, OTHER ==
[~2021-06-14 02:55] MED LIST changes: +EXCEDRIN
--- NOTE | 2021-06-14 10:47 | NUR ---
BP LOW THIS AM. WILL RECHECK PRIOR TO D/C.
--- NOTE | 2021-06-14 11:19 | NUR ---
BP 96/60. PT STATES HE HAS HAD SLIGHT DIZZYNESS THE LAST COUPLE OF DAYS. ATTEMPTED TO CALL PTS PCP HARINI GARZA. LEFT MESSAGE FOR THEM TO RETURN CALL REGARDING BP. PT STATES HE FEELS SAFE TO GO HOME. HE STATES IS SUPPOSED TO CALL THE OFFICE TODAY REGARDING UTI. STATES HE WILL CALL AND INFORM OF HOW HE IS FEELING. ADVISED PT TO WAIT TO TAKE BP MEDS UNTIL HE SPEAKS WITH OFFICE. AWAITING RETURN CALL FROM OFFICE TO GIVE UPDATE ON PATIENTS BP.
--- NOTE | 2021-06-14 13:22 | NUR ---
SPOKE WITH EL AT HARINI PARADA'S OFFICE. INFORMED OF HYPOTENTENSION AND DIZZYNESS THE LAST 2 DAYS.
== END 2021-06-14 11:10 | disposition home or self-care (01) ==
LOC: ATC 02:55
DX: N45.3 Epididymo-orchitis (principal)
CPT/HCPCS: J1335

== ENCOUNTER 2021-06-16 01:02 | Day surgery (SDC) | payer MEDICARE, OTHER | END 2021-06-16 11:17 | disposition home or self-care (01) | LOC: ATC 01:02 | DX: N45.3 Epididymo-orchitis (principal) | CPT/HCPCS: 96365; J1335 ==

== ENCOUNTER 2021-06-17 01:47 | Day surgery (SDC) | payer MEDICARE, OTHER | END 2021-06-17 10:00 | disposition home or self-care (01) | LOC: ATC 01:47 | DX: N45.3 Epididymo-orchitis (principal); I10 Essential (primary) hypertension; E11.9 Type 2 diabetes mellitus without complications; K21.9 Gastro-esophageal reflux disease without esophagitis; N40.0 Benign prostatic hyperplasia without lower urinary tract symptoms; E78.00 Pure hypercholesterolemia, unspecified; Z79.84 Long term (current) use of oral hypoglycemic drugs | CPT/HCPCS: J1335 ==

== ENCOUNTER 2021-06-18 10:18 | Day surgery (SDC) | payer MEDICARE, OTHER ==
--- NOTE | 2021-06-18 10:51 | NUR ---
WRAPPED WITH 2X2'S COBAN AND NETTING FOR USE TOMORROW
== END 2021-06-18 10:51 | disposition home or self-care (01) ==
LOC: ATC 10:18
DX: N45.3 Epididymo-orchitis (principal); I10 Essential (primary) hypertension; E11.9 Type 2 diabetes mellitus without complications; K21.9 Gastro-esophageal reflux disease without esophagitis; E78.00 Pure hypercholesterolemia, unspecified; N40.0 Benign prostatic hyperplasia without lower urinary tract symptoms; Z95.0 Presence of cardiac pacemaker; Z79.84 Long term (current) use of oral hypoglycemic drugs
CPT/HCPCS: J1335

== ENCOUNTER 2021-06-19 04:38 | Day surgery (SDC) | payer MEDICARE, OTHER | END 2021-06-19 11:00 | disposition home or self-care (01) | LOC: ATC 04:38 | DX: N45.3 Epididymo-orchitis (principal); I10 Essential (primary) hypertension; E11.9 Type 2 diabetes mellitus without complications; K21.9 Gastro-esophageal reflux disease without esophagitis; N40.0 Benign prostatic hyperplasia without lower urinary tract symptoms | CPT/HCPCS: J1335 ==

== ENCOUNTER → 2022-06-06 | Outpatient (CLI) | payer MEDICARE, OTHER | DX: I10 Essential (primary) hypertension (principal); E11.65 Type 2 diabetes mellitus with hyperglycemia ==

== ENCOUNTER 2023-11-24 21:20 | Emergency (ER) | payer MEDICARE, OTHER ==
[~2023-11-24] VITALS: Ht 193 cm; Wt 97.1 kg
[2023-11-24 21:54] LABS: BASOPHILS ABSOLUTE AUTO 0.03 K/mm3 (0.00-0.23); BASOPHILS PERCENT AUTO 1 % (0-2); EOSINOPHILS ABSOLUTE AUTO 0.26 K/mm3 (0.00-0.68); EOSINOPHILS PERCENT AUTO 5 % (0-6); Hematocrit 39.6 % (37.0-53.0); IMMATURE GRAN ABSOLUTE AUTO 0.01 K/mm3 (0.00-0.10); IMMATURE GRAN PERCENT AUTO 0 % (0-1); LYMPHOCYTES ABSOLUTE AUTO 1.67 K/mm3 (0.84-5.20); LYMPHOCYTES PERCENT AUTO 31 % (21-46); MONOCYTES ABSOLUTE AUTO 0.41 K/mm3 (0.16-1.47); MONOCYTES PERCENT AUTO 8 % (4-13); Mean Corpuscular HGB 28.7 pg (26.0-34.0); Mean Corpuscular HGB Conc 32.8 g/dL (31.5-36.5); Mean Corpuscular Volume 87 fL (80-100); Mean Platelet Volume 9.2 fL (9.1-12.4); NEUTROPHILS ABSOLUTE AUTO 2.97 K/mm3 (1.96-9.15); NEUTROPHILS PERCENT AUTO 55 % (41-73); Platelet Count 138 K/mm3 (150-400); RDW Coefficient Variation 14.4 % (11.7-14.2); RDW Standard Deviation 46.5 fL (35.1-46.3); Red Blood Cell Count 4.53 M/mm3 (4.30-5.90); White Blood Cell Count 5.35 K/mm3 (4.00-11.30)
[2023-11-24 22:08] LABS: Albumin, Blood 3.4 g/dL (3.4-5.0); Albumin/Globulin Ratio 1.1 (0.8-1.8); Bilirubin, Total 0.3 mg/dL (0.1-1.0); Calcium, Blood 9.2 mg/dL (8.5-10.1); Creatinine, Blood 0.93 mg/dL (0.60-1.20); Globulin, Blood 3.1 g/dL (2.2-4.0); Potassium, Blood 4.1 mmol/L (3.5-5.5); Total Protein, Blood 6.5 g/dL (6.4-8.2)
[2023-11-25 00:30] VITALS: BP 139/68
== END 2023-11-25 00:39 | disposition home or self-care (01) ==
LOC: ER 21:20
PROVIDERS: Emergency Medicine
DX: R07.89 Other chest pain (principal); D64.9 Anemia, unspecified; I10 Essential (primary) hypertension; E11.9 Type 2 diabetes mellitus without complications; K21.9 Gastro-esophageal reflux disease without esophagitis; E78.00 Pure hypercholesterolemia, unspecified; N40.0 Benign prostatic hyperplasia without lower urinary tract symptoms; Z79.899 Other long term (current) drug therapy; Z79.85 Long-term (current) use of injectable non-insulin antidiabetic drugs; Z79.84 Long term (current) use of oral hypoglycemic drugs; Z95.0 Presence of cardiac pacemaker
CPT/HCPCS: 71046; 80053; 84484; 85025

== ENCOUNTER 2024-10-30 17:58 | Inpatient (IN) | payer MEDICARE, OTHER ==
[~2024-10-30] VITALS: Ht 190.5 cm; Wt 107.0 kg
[2024-10-30] MEDS ORDERED: HYDROmorphone HCl/Pf 1MG SYR IV ONE (18:25)
[2024-10-30] MEDS ORDERED: Ondansetron HCl 2 MG / ML 2ML Vial IV PRN ×2 (18:25→19:55)
[2024-10-30] MEDS ORDERED: NS 1,000 ML IV SCH (19:55)
[2024-10-30] MEDS ORDERED: HYDROmorphone HCl/Pf 1MG SYR IV PRN (20:00)
[2024-10-30] MEDS ORDERED: OxyCODONE 5 mg/Acetamin 325 mg TABLET PO PRN (20:00)
[2024-10-30 20:04] LABS: BASOPHILS ABSOLUTE AUTO 0.03 K/mm3 (0.00-0.23); BASOPHILS PERCENT AUTO 1 % (0-2); EOSINOPHILS ABSOLUTE AUTO 0.14 K/mm3 (0.00-0.68); EOSINOPHILS PERCENT AUTO 3 % (0-6); Hematocrit 38.6 % (37.0-53.0); Hemoglobin 12.3 g/dL (13.5-17.5); IMMATURE GRAN ABSOLUTE AUTO 0.03 K/mm3 (0.00-0.10); IMMATURE GRAN PERCENT AUTO 1 % (0-1); LYMPHOCYTES ABSOLUTE AUTO 1.41 K/mm3 (0.84-5.20); LYMPHOCYTES PERCENT AUTO 27 % (21-46); MONOCYTES ABSOLUTE AUTO 0.28 K/mm3 (0.16-1.47); MONOCYTES PERCENT AUTO 5 % (4-13); Mean Corpuscular HGB 28.5 pg (26.0-34.0); Mean Corpuscular HGB Conc 31.9 g/dL (31.5-36.5); Mean Corpuscular Volume 89 fL (80-100); Mean Platelet Volume 8.9 fL (9.1-12.4); NEUTROPHILS ABSOLUTE AUTO 3.38 K/mm3 (1.96-9.15); NEUTROPHILS PERCENT AUTO 64 % (41-73); Platelet Count 151 K/mm3 (150-400); RDW Coefficient Variation 15.3 % (11.7-14.2); Red Blood Cell Count 4.32 M/mm3 (4.30-5.90); White Blood Cell Count 5.27 K/mm3 (4.00-11.30)
[2024-10-30 20:18] LABS: Albumin, Blood 3.3 g/dL (3.4-5.0); Albumin/Globulin Ratio 1.2 (0.8-1.8); Bilirubin, Total 0.4 mg/dL (0.1-1.0); Bun/Creatinine Ratio 25.9 (12.0-20.0); Calcium, Blood 8.7 mg/dL (8.5-10.1); Creatinine, Blood 0.85 mg/dL (0.60-1.20); Globulin, Blood 2.8 g/dL (2.2-4.0); Potassium, Blood 4.1 mmol/L (3.5-5.5); Total Protein, Blood 6.1 g/dL (6.4-8.2)
[2024-10-30] MEDS ORDERED: Docusate Sodium 100 MG Cap PO SCH (21:00)
[2024-10-30 22:39] VITALS: BP 142/90
[2024-10-31] VITALS (19 sets, daily range): BP systolic 109–147; BP diastolic 57–88
[2024-10-31] MEDS ORDERED: Insulin Human Lispro 100 Units/ML 3ML Syringe SC SCH
[2024-10-31] MEDS ORDERED: Omeprazole 20 MG CapCR PO SCH (06:00)
--- NOTE | 2024-10-31 06:38 | NUR ---
Shift Summary Pt admitted to this unit from ED for fx of R femoral neck. Pt is very painful and required Q2 PRN dilauded 1 mL as ordered. He is on total bedrest and does not want to be rolled or repositioned d/t pain. He is AOx4, continent, uses urinal independently. SCDs in place. He is [place], hearing aids and dentures are with pt in the room. He has been NPO since 0000 in anticipation of procedure today. Per charge nurse, Dr. Espinoza from ortho has already been notified and this pt is on their list for today. Pt has a pacemaker, unkown rate.
[2024-10-31] MEDS ORDERED: NIFEdipine 30 MG TabCR PO SCH (09:00)
[2024-10-31] MEDS ORDERED: Finasteride 5 MG Tab PO SCH (09:00)
[2024-10-31] MEDS ORDERED: Tamsulosin HCl 0.4 MG Cap PO SCH (09:00)
[2024-10-31] MEDS ORDERED: Lisinopril 20 MG Tab PO SCH (09:00)
[2024-10-31] MEDS ORDERED: Lactated Ringer's 1,000 ML IV SCH (10:35)
--- NOTE | 2024-10-31 10:39 | NUR ---
PT TO OR AT ABOUT 1020
[2024-10-31] MEDS ORDERED: Ropivacaine 0.5% HCl/Pf 123.125 MG,EPINEPHrine HCL 0.25 MG,Ketorolac Tromethamine 15 MG... INFIL SCH (10:40)
[2024-10-31] MEDS ORDERED: OxyCODONE HCL 10 MG TABCR PO SCH (10:40)
[2024-10-31] MEDS ORDERED: Chlorhexidine Mouth Care 15 ML UDC MT SCH (10:40)
[2024-10-31] MEDS ORDERED: Acetaminophen 500 MG Tab PO SCH (10:40)
[2024-10-31] MEDS ORDERED: CeFAZolin Sodium 2,000 MG in NS 100 ML IV SCH (10:40)
[2024-10-31] MEDS ORDERED: Tranexamic Acid 100 ML IV SCH (10:43)
[2024-10-31] MEDS ORDERED: propofoL 20 ML IV ONE (11:21)
[2024-10-31] MEDS ORDERED: FentaNYL Citrate 50 MCG/ML 2 ML Injection ONE ×2 (11:22→12:10)
--- NOTE | 2024-10-31 11:25 | NUR ---
PT TO SDS ON HOSP BED. History, Chart, Medications and Allergies reviewed before start of procedure. Pre-Op teaching done. Pt verbalizes understanding. Patient confirms NPO status and agrees with scheduled surgery. DAUGHTER AT BEDSIDE DURING PRE OP. GLASSES AND HEARING AIDS REMOVED AND LEFT IN PT'S ROOM. PT USED URINAL IN HIS ROOM BEFORE TAKING TO SDS. EKG ORDERED BY ANESTHESIA PROVIDER AND COMPLETED IN SDS.
[2024-10-31] MEDS ORDERED: Phenylephrine HCl 10mg/ml 1 ml Vial ONE (11:26)
[2024-10-31] MEDS ORDERED: Dexamethasone Sod Phos 10 MG/ML 1ML VIAL ONE (11:29)
[2024-10-31] MEDS ORDERED: Ondansetron HCl 2 MG / ML 2ML Vial ONE (11:29)
[2024-10-31] MEDS ORDERED: Ondansetron HCl 2 MG / ML 2ML Vial IV PRN (11:50)
[2024-10-31] MEDS ORDERED: Albuterol 2.5 MG/3 ML VIAL INH PRN (11:50)
[2024-10-31] MEDS ORDERED: Metoclopramide HCl 5MG / ML 2ML Vial IV PRN (11:50)
[2024-10-31] MEDS ORDERED: ePHEDrine Sulfate 50 MG/ML 1ML Injection IV PRN (11:50)
[2024-10-31] MEDS ORDERED: Atropine Sulfate 0.1 MG/ML 10ML SYR IV PRN (11:50)
[2024-10-31] MEDS ORDERED: Morphine Sulfate 4 MG/1 ML Injection IV PRN (11:50)
[2024-10-31] MEDS ORDERED: HYDROmorphone HCl/Pf 1MG SYR IV PRN (11:55)
[2024-10-31] MEDS ORDERED: FentaNYL Citrate 50 MCG/ML 2 ML Injection IV PRN ×2 (11:55)
[2024-10-31] MEDS ORDERED: Sugammadex Sodium 200 MG/2ML SDV (100 MG/ML) ONE (13:18)
--- NOTE | 2024-10-31 15:58 | NUR ---
POST OP: REPORT RECEIVED FROM LEAD APPLICATIONS DEVELOPER. PT TO UNIT AT 1430, VSS, A/O. SURGICAL SITE WNL, PT REPORTS PAIN IS "MUCH BETTER" ABLE TO BEND KNEE. PT INSTRUCTED TO USE CALL LIGHT IF NEEDS OOB, CALL LIGHT IN REACH
--- NOTE | 2024-10-31 17:30 | NUR ---
SUMMARY: PT HAS DONE WELL POST OP. VSS, A/O. PT HAS VOIDED. USING CALL LIGHT, NO ACUTE CONCERNS.
[2024-10-31] MEDS ORDERED: Rosuvastatin Calcium 10 MG Tab PO SCH (21:00)
[2024-11-01 00:45] VITALS: BP 118/64
[2024-11-01 04:40] VITALS: BP 128/68
--- NOTE | 2024-11-01 05:59 | NUR ---
SHIFT SUMMARY AOX4. VSS. POD 1-R TOTAL HIP. PRINEO DRESSING C/D/I. DENIES MUCH PAIN @HS, REPORTING ONLY 4-5/10 & THIS AM PAIN LEVEL HAS INCREASED TO 7/10, MEDICATED W/PERCOCET. ICE PACK IN PLACE. DENIES N/T TO LE, ABLE TO RAISE LEG OFF BED. CAP REFILL <3 SEC. PT HASNT BEEN OOB SINCE SURGERY, NO WB STATUS ORDERED & PT PENDING PT EVAL. TOLERATING PO, IND W/URINAL. CALL LIGHT IN REACH.
[2024-11-01] MEDS ORDERED: Insulin Human Lispro 100 Units/ML 3ML Syringe SC SCH (07:30)
[2024-11-01 07:35] VITALS: BP 132/71
[2024-11-01 08:38] LABS: BASOPHILS ABSOLUTE AUTO 0.02 K/mm3 (0.00-0.23); BASOPHILS PERCENT AUTO 0 % (0-2); EOSINOPHILS ABSOLUTE AUTO 0.06 K/mm3 (0.00-0.68); EOSINOPHILS PERCENT AUTO 1 % (0-6); Hematocrit 33.7 % (37.0-53.0); Hemoglobin 10.8 g/dL (13.5-17.5); IMMATURE GRAN ABSOLUTE AUTO 0.04 K/mm3 (0.00-0.10); IMMATURE GRAN PERCENT AUTO 1 % (0-1); LYMPHOCYTES ABSOLUTE AUTO 1.09 K/mm3 (0.84-5.20); LYMPHOCYTES PERCENT AUTO 13 % (21-46); MONOCYTES ABSOLUTE AUTO 0.74 K/mm3 (0.16-1.47); MONOCYTES PERCENT AUTO 9 % (4-13); Mean Corpuscular Volume 90 fL (80-100); NEUTROPHILS ABSOLUTE AUTO 6.79 K/mm3 (1.96-9.15); NEUTROPHILS PERCENT AUTO 78 % (41-73); Platelet Count 138 K/mm3 (150-400); RDW Coefficient Variation 15.3 % (11.7-14.2); Red Blood Cell Count 3.73 M/mm3 (4.30-5.90); White Blood Cell Count 8.74 K/mm3 (4.00-11.30)
[2024-11-01 08:53] LABS: Bun/Creatinine Ratio 20.6 (12.0-20.0); Calcium, Blood 8.4 mg/dL (8.5-10.1); Creatinine, Blood 0.97 mg/dL (0.60-1.20); Potassium, Blood 4.2 mmol/L (3.5-5.5)
[2024-11-01 11:48] VITALS: BP 105/54
[2024-11-01 14:39] VITALS: BP 109/53
[2024-11-01 19:33] VITALS: BP 125/57
[2024-11-02 03:49] VITALS: BP 136/63
--- NOTE | 2024-11-02 06:27 | NUR ---
NOC SUMMARY- PT PAIN MANAGED WELL. PT VOIDING WELL. PT HAS BEEN RESTING QUIETLY THROUGH OUT SHIFT. PT CURRENTLY SLEEPING IN NO DISTRESS. DRESSING C/D/I. CALL LIGHT IN REACH.
[2024-11-02 06:58] LABS: BASOPHILS ABSOLUTE AUTO 0.02 K/mm3 (0.00-0.23); BASOPHILS PERCENT AUTO 0 % (0-2); EOSINOPHILS ABSOLUTE AUTO 0.18 K/mm3 (0.00-0.68); EOSINOPHILS PERCENT AUTO 2 % (0-6); Hematocrit 30.8 % (37.0-53.0); IMMATURE GRAN ABSOLUTE AUTO 0.04 K/mm3 (0.00-0.10); IMMATURE GRAN PERCENT AUTO 1 % (0-1); LYMPHOCYTES ABSOLUTE AUTO 1.24 K/mm3 (0.84-5.20); LYMPHOCYTES PERCENT AUTO 17 % (21-46); MONOCYTES ABSOLUTE AUTO 0.67 K/mm3 (0.16-1.47); MONOCYTES PERCENT AUTO 9 % (4-13); Mean Corpuscular HGB 29.1 pg (26.0-34.0); Mean Corpuscular HGB Conc 32.5 g/dL (31.5-36.5); Mean Corpuscular Volume 90 fL (80-100); Mean Platelet Volume 8.8 fL (9.1-12.4); NEUTROPHILS ABSOLUTE AUTO 5.27 K/mm3 (1.96-9.15); NEUTROPHILS PERCENT AUTO 71 % (41-73); Platelet Count 125 K/mm3 (150-400); RDW Coefficient Variation 15.4 % (11.7-14.2); RDW Standard Deviation 50.1 fL (35.1-46.3); Red Blood Cell Count 3.44 M/mm3 (4.30-5.90); White Blood Cell Count 7.42 K/mm3 (4.00-11.30)
[2024-11-02 07:26] LABS: Bun/Creatinine Ratio 22.4 (12.0-20.0); Calcium, Blood 8.5 mg/dL (8.5-10.1); Creatinine, Blood 0.98 mg/dL (0.60-1.20); Potassium, Blood 4.1 mmol/L (3.5-5.5)
[2024-11-02 07:31] VITALS: BP 142/70
--- NOTE | 2024-11-02 13:34 | NUR ---
PER DR QUINONES PT IS CLEARED TO DISCHARGE FROM [facility]TH[facility]. PRIMARY RN NOTIFIED.
--- NOTE | 2024-11-02 14:23 | NUR ---
PT'S DAUGHTER JENISE CALLED AND STATED THAT THEY ARE NOT PREPARED WITH ALL THE EQUIPMENT THAT THEY FEEL THEY NEED TO BRING HIM HOME. DR MERRITT AND CARE MANAGEMENT NOTIFIED.
[2024-11-02 15:26] VITALS: BP 126/62
[2024-11-02 19:32] VITALS: BP 101/54
[2024-11-02] MEDS ORDERED: CeFAZolin Sodium 2,000 MG in NS 50 ML IV SCH (20:00)
[2024-11-03 04:01] VITALS: BP 129/64
--- NOTE | 2024-11-03 04:32 | NUR ---
NOC SUMMARY- PT PAIN IS MANAGED WELL. PT TOLERATING PO AND VOIDING. PT DRESSING IS C/D/I. PT TURNS SELF IN BED. PT HAS BEEN RESTING COMFORTABLY. NO NEW ISSUES. CALL LIGHT IN REACH.
[2024-11-03 07:04] VITALS: BP 145/75
--- NOTE | 2024-11-03 09:30 | NUR ---
PATIENT WALKED TO DOOR AND SAT IN CHAIR FOR 35 MIN.PATIENT REQUEST TO GO BACK TO BED. RN NOTIFIED.
--- NOTE | 2024-11-03 10:28 | NUR ---
SPOKE TO DR MERRITT REGARDING PT'S TEMP AND EDEMA TO R KNEE. ORDERS OBTAINED.
[2024-11-03 10:52] VITALS: BP 142/71
[2024-11-03 11:03] LABS: BASOPHILS ABSOLUTE AUTO 0.03 K/mm3 (0.00-0.23); BASOPHILS PERCENT AUTO 0 % (0-2); EOSINOPHILS ABSOLUTE AUTO 0.13 K/mm3 (0.00-0.68); EOSINOPHILS PERCENT AUTO 2 % (0-6); Hematocrit 32.6 % (37.0-53.0); Hemoglobin 10.5 g/dL (13.5-17.5); IMMATURE GRAN ABSOLUTE AUTO 0.04 K/mm3 (0.00-0.10); IMMATURE GRAN PERCENT AUTO 1 % (0-1); LYMPHOCYTES ABSOLUTE AUTO 0.78 K/mm3 (0.84-5.20); LYMPHOCYTES PERCENT AUTO 11 % (21-46); MONOCYTES ABSOLUTE AUTO 0.61 K/mm3 (0.16-1.47); MONOCYTES PERCENT AUTO 8 % (4-13); Mean Corpuscular HGB 28.8 pg (26.0-34.0); Mean Corpuscular HGB Conc 32.2 g/dL (31.5-36.5); Mean Corpuscular Volume 90 fL (80-100); Mean Platelet Volume 9.2 fL (9.1-12.4); NEUTROPHILS ABSOLUTE AUTO 5.81 K/mm3 (1.96-9.15); NEUTROPHILS PERCENT AUTO 79 % (41-73); Platelet Count 134 K/mm3 (150-400); RDW Coefficient Variation 14.9 % (11.7-14.2); RDW Standard Deviation 49.5 fL (35.1-46.3); Red Blood Cell Count 3.64 M/mm3 (4.30-5.90)
--- NOTE | 2024-11-03 11:07 | NUR ---
PT REPORTED 4/10 CHEST PAIN/HEAVINESS RADIATING DOWN BOTH ARMS. VSS. NOTIFIED DR MERRITT. EKG COMPLETED PER ORDERS. TROPONIN ORDERED. PT STATING SYMPTOMS "EASING UP". CALL LIGHT IN REACH.
[2024-11-03 11:44] LABS: Bun/Creatinine Ratio 23.4 (12.0-20.0); Calcium, Blood 8.4 mg/dL (8.5-10.1); Creatinine, Blood 0.98 mg/dL (0.60-1.20); Potassium, Blood 4.6 mmol/L (3.5-5.5)
[2024-11-03] MEDS ORDERED: Heparin Sodium,Porcine 5,000 UNIT/0.5 ML SDV SC SCH (14:00)
[2024-11-03 14:30] VITALS: BP 123/61
[2024-11-03 15:06] LABS: Source, Urine Clean Catch
[2024-11-03 15:13] LABS: Appearance, Urine Cloudy (Clear); Bilirubin, Urine Neg (Neg); Blood, Urine 1+ (Neg); Color, Urine Yellow (P-Yellow); Glucose Qualitative, Urine 4+ (Neg); Ketones, Urine 1+ (Neg); Leukocyte Esterase, Urine 3+ (Neg); Nitrite, Urine Pos (Neg); Protein, Urine 2+ (Neg); Urobilinogen, Urine NORM (Normal)
[2024-11-03 15:27] LABS: Red Blood Cells, Urine 0-2 /hpf (0-2)
[2024-11-03 15:28] LABS: Bacteria Many /hpf; Squamous Epithelial Cells Few /hpf (Few)
[2024-11-03 15:38] LABS: CORONAVIRUS COVID-19 AG Negative (NEGATIVE); INFLUENZA A AG Negative (NEGATIVE); INFLUENZA B AG Negative (NEGATIVE)
[2024-11-03] MEDS ORDERED: Insulin Human Lispro 100 Units/ML 3ML Syringe SC SCH (16:30)
[2024-11-03] MEDS ORDERED: CefTRIAXone Sodium 1,000 MG in NS 100 ML IV SCH (17:00)
--- NOTE | 2024-11-03 17:22 | NUR ---
SUMMARY PT FEBRILE DURING SHIFT. C/O OF INCREASED PAIN AND PRESENCE OF EDEMA TO R KNEE. KNEE XR WAS COMPLETED AND RADIOLOGIST CALLED TO STATE DR QUINONES NEEDED TO BE NOTIFIED OF LARGE EFFUSION TO R KNEE. DR QUINONES NOTIFIED/NO NEW ORDERS AT THIS TIME. PT ALSO C/O OF CHEST PAIN DURING SHIFT THAT FELT "HEAVY" AND RADIATED DOWN ARMS. DR MERRITT WAS NOTIFIED AND ORDERS WERE OBTAINED. DR RANDLE ASSUMED CARE OF PT AND PLACED FURTHER ORDERS. PT REPORTED CHEST PAIN/PRESSURE RESOLVED. PT SAT UP IN CHAIR FOR AWHILE THIS AM. WORKED WITH THERAPY. HAS BEEN RESTING IN BED THIS AFTERNOON, CALL LIGHT IN REACH.
[2024-11-03] MEDS ORDERED: NS 250 ML IV PRN (17:30)
[2024-11-03 19:50] VITALS: BP 113/55
[2024-11-03] MEDS ORDERED: Lactobacil 2-S.Thermo-Bifido 1 1 Cap PO SCH (21:00)
[2024-11-03] MEDS ORDERED: Insulin Glargine-Yfgn 100 Unit/mL 3 ML SYR SC SCH (21:00)
[2024-11-03] MEDS ORDERED: Polyethylene Glycol 3350 17 gm PO SCH (21:00)
[2024-11-04 00:10] VITALS: BP 115/53
--- NOTE | 2024-11-04 04:19 | NUR ---
SHIFT SUMMARY POD4 R MARILIN. LESTEREL REMAINS C/D/I. R KNEE REMAINS SWOLLEN W/RADIATING HEAT. A SCRAPE IS NOTED ON THE KNEE FROM THE PATIENTS INITIAL FALL. PT ENDORSES SENSATION IN THE KNEE IS "DIFFERENT" THAN THE REST OF HIS LEG, SLIGHTLY N/T. STRENGTH AND SENSATION REMAIN INTACT IN RLE OTHERWISE. CRYO HAS REMAINED IN PLACE T/O THE NIGHT, PT ENDORSES RELIEF W/THIS. PT MEDICATED FOR PAIN PER EMAR W/TOLLERABLE RESULTS. VSS, NO TEMP T/O THE NIGHT. TELE READS A PACED @ 99. PT HAS SLEPT ON AND OFF T/O THE NIGHT. VOIDING INTO URINAL W/O DIFFICULTY. NO BM NOTED, PT REPORTS NO BM SINCE ADMISSION. OVERALL, NO ACUTE EVENTS NOTED. PLAN TO AWAIT [facility]TH[facility] TO ASSESS THE PATIENTS KNEE AND D/C PLANNING. THE PATIENT IS CURRENTLY SLEEPING, IN NO DISTRESS, CALL LIGHT IN REACH
[2024-11-04 05:16] VITALS: BP 109/63
[2024-11-04 05:30] LABS: BASOPHILS ABSOLUTE AUTO 0.02 K/mm3 (0.00-0.23); BASOPHILS PERCENT AUTO 0 % (0-2); EOSINOPHILS ABSOLUTE AUTO 0.17 K/mm3 (0.00-0.68); EOSINOPHILS PERCENT AUTO 3 % (0-6); Hematocrit 29.1 % (37.0-53.0); Hemoglobin 9.3 g/dL (13.5-17.5); IMMATURE GRAN ABSOLUTE AUTO 0.05 K/mm3 (0.00-0.10); IMMATURE GRAN PERCENT AUTO 1 % (0-1); LYMPHOCYTES PERCENT AUTO 15 % (21-46); MONOCYTES ABSOLUTE AUTO 0.65 K/mm3 (0.16-1.47); MONOCYTES PERCENT AUTO 10 % (4-13); Mean Corpuscular HGB 28.4 pg (26.0-34.0); Mean Corpuscular Volume 89 fL (80-100); Mean Platelet Volume 8.9 fL (9.1-12.4); NEUTROPHILS ABSOLUTE AUTO 4.76 K/mm3 (1.96-9.15); NEUTROPHILS PERCENT AUTO 72 % (41-73); Platelet Count 157 K/mm3 (150-400); RDW Coefficient Variation 14.8 % (11.7-14.2); RDW Standard Deviation 48.7 fL (35.1-46.3); Red Blood Cell Count 3.27 M/mm3 (4.30-5.90); White Blood Cell Count 6.65 K/mm3 (4.00-11.30)
[2024-11-04 05:55] LABS: Bun/Creatinine Ratio 22.7 (12.0-20.0); Calcium, Blood 8.6 mg/dL (8.5-10.1); Creatinine, Blood 0.92 mg/dL (0.60-1.20); Potassium, Blood 4.3 mmol/L (3.5-5.5)
[2024-11-04 07:45] VITALS: BP 120/61
[2024-11-04] MEDS ORDERED: Meropenem 1,000 MG in NS 100 ML IV SCH (09:31)
[2024-11-04 11:50] VITALS: BP 137/62
--- NOTE | 2024-11-04 14:22 | NUR ---
RN CALLED PT DAUGHTER PER REQUEST. DAUGHTER UPDATED OF R KNEE ASPIRATION AND PLAN. PT DAUGHTER VERBALIZES UNDERSTANDING.
[2024-11-04 14:37] LABS: Body Fluid Crystals POS (NEGATIVE)
[2024-11-04 14:44] VITALS: BP 129/63
--- NOTE | 2024-11-04 15:19 | NUR ---
BY [address] QUINONES AND DR RAMON HAD BEEN NOTIFIED THAT PT'S R KNEE HAD INCREASING REDNESS/WARMTH AND EDEMA NOTED.
--- NOTE | 2024-11-04 15:21 | NUR ---
SUMMARY: PT PLEASANT WITH NO ACUTE CHANGES DURING SHIFT. DR QUINONES TO BEDSIDE WITH RIGHT KNEE ASPIRATION AFTER NOTIFICATION OF WARMTH AND INCREASED SWELLING; SPECIMEN TO LAB FOR TESTS AND CULTURE. FAMILY WAS NOTIFIED OF BEDSIDE PROCEDURE AND PLAN OF CARE BY RN WITH DIRECTION OF DR QUINONES. PT WORKED WITH THERAPY AND WAS UP TO CHAIR WITH THERAPY HOWEVER C/O RIGHT KNEE PAIN AND ASKED TO RETURN TO BED. PT EDUCATED ON PLAN OF CARE.
[2024-11-04 15:28] LABS: Appearance, Synovial Fluid Hazy (Clear); Color, Synovial Fluid Yellow (None-P Yel); RBC Count, Synovial Fluid 417 /mm3 (0-0)
[2024-11-04 15:29] LABS: WBC Count, Synovial Fluid 6599 /mm3 (0-180)
[2024-11-04 17:32] LABS: Lymphs, Synovial Fluid 2 % (0-15); Monocytes/Macrophages, Synovia 6 % (0-65); Neutrophils, Synovial Fluid 92 % (0-24)
[2024-11-04 20:04] VITALS: BP 121/65
[2024-11-05 00:23] VITALS: BP 120/64
--- NOTE | 2024-11-05 04:37 | NUR ---
SHIFT SUMMARY POD 5 R MARILIN; 4.22 R KNEE ASPIRATION @ BEDISDE. NO ACUTE CHANGES OVERNIGHT. VSS; TELE IN USE. TOLERATING ORALS, DENIES N/V. PT REPORTS PAIN R HIP/KNEE/LOWER BACK. POLAR PACK IN USE TO R HIP/R KNEE. PT REPORTS PAIN TOLERABLE, MEDICATED PER EMAR. PRINEO DRESSING C/D/I. BAND AID & KISHOR WRAP TO R KNEE C/D/I. IV ABX PER EMAR. VOIDING. NO AMB OVERNIGHT R/T PAIN. CALL LIGHT IN REACH, BED IN LOWEST POSITION, WILL REPORT TO DAY RN.
[2024-11-05 05:25] VITALS: BP 125/72
[2024-11-05 07:37] VITALS: BP 123/60
[2024-11-05 11:22] VITALS: BP 139/68
[2024-11-05] MEDS ORDERED: Ketorolac Tromethamine 30mg Vial IV PRN (11:55)
[2024-11-05] MEDS ORDERED: Colchicine 0.6 MG TAB PO SCH (12:00)
[2024-11-05] MEDS ORDERED: Ketorolac Tromethamine 15mg Vial IV PRN (12:10)
[2024-11-05] MEDS ORDERED: Insulin Regular 100 UNIT/ML 10ML Vial SC ONE (12:40)
[2024-11-05 14:40] VITALS: BP 118/54
[2024-11-05] MEDS ORDERED: Insulin Regular 100 UNIT/ML 10ML Vial SC SCH (16:30)
--- NOTE | 2024-11-05 18:09 | NUR ---
SHIFT SUMMARY PT A&OX4, VSS, AMB W/ ASSIST, TOLERATING PO, AND PAIN MANAGED PER EMAR. NO BM SHIFT. PT WORKED W/ OCCUPATIONAL AND PHYSICAL THERAPY. IV ABX GIVEN PER ORDER. NO OTHER ACUTE CHANGES. CALL LIGHT WITHIN REACH AND PT ABLE TO MAKE NEEDS KNOWN.
[2024-11-05 19:33] VITALS: BP 107/60
[2024-11-05] MEDS ORDERED: Insulin Glargine-Yfgn 100 Unit/mL 3 ML SYR SC SCH (21:00)
--- NOTE | 2024-11-05 23:55 | NUR ---
CALL FROM TELEMETRY. THIS RN RECEIVED A CALL FROM TELEMETRY REPORTING A 5 BEAT RUN OF VTACH AT 2344. PT RETURNED TO SINUS AT 92 BPM. THIS RN IMMEDIATELY WENT TO PT ROOM. PT RESTING IN BED, DENIES SHORTNESS OF BREATH OR CHEST PAIN. PT A/OX4 AND RESPONDING APPROPRIATELY. DISCUSSED WITH BLUNGERGERMAN SHAH.
[2024-11-06 04:05] VITALS: BP 123/68
[2024-11-06 05:12] LABS: BASOPHILS ABSOLUTE AUTO 0.03 K/mm3 (0.00-0.23); BASOPHILS PERCENT AUTO 1 % (0-2); EOSINOPHILS ABSOLUTE AUTO 0.29 K/mm3 (0.00-0.68); EOSINOPHILS PERCENT AUTO 4 % (0-6); Hematocrit 29.8 % (37.0-53.0); Hemoglobin 9.8 g/dL (13.5-17.5); IMMATURE GRAN ABSOLUTE AUTO 0.05 K/mm3 (0.00-0.10); IMMATURE GRAN PERCENT AUTO 1 % (0-1); LYMPHOCYTES ABSOLUTE AUTO 1.26 K/mm3 (0.84-5.20); LYMPHOCYTES PERCENT AUTO 19 % (21-46); MONOCYTES ABSOLUTE AUTO 0.66 K/mm3 (0.16-1.47); MONOCYTES PERCENT AUTO 10 % (4-13); Mean Corpuscular HGB 29.1 pg (26.0-34.0); Mean Corpuscular HGB Conc 32.9 g/dL (31.5-36.5); Mean Corpuscular Volume 88 fL (80-100); Mean Platelet Volume 8.8 fL (9.1-12.4); NEUTROPHILS ABSOLUTE AUTO 4.31 K/mm3 (1.96-9.15); NEUTROPHILS PERCENT AUTO 65 % (41-73); Platelet Count 163 K/mm3 (150-400); RDW Coefficient Variation 14.8 % (11.7-14.2); RDW Standard Deviation 48.3 fL (35.1-46.3); Red Blood Cell Count 3.37 M/mm3 (4.30-5.90)
[2024-11-06 05:36] LABS: Bun/Creatinine Ratio 25.5 (12.0-20.0); Calcium, Blood 8.6 mg/dL (8.5-10.1); Creatinine, Blood 1.02 mg/dL (0.60-1.20); Potassium, Blood 4.4 mmol/L (3.5-5.5)
--- NOTE | 2024-11-06 06:21 | NUR ---
CALL FROM TELEMETRY. CALL RECEIVED FROM MIKE IN TELEMETRY. PT HAVING FREQUENT PVCS APPROX 30-50 PER MINUTE, RATE NSR AT 90 BPM. PT ASYMPTOMATIC, DENIES SOB OR CHEST PAIN/PRESSURE. DISCUSSED WITH GOSPEL WORKER, WILL CALL HOSPITALIST.
--- NOTE | 2024-11-06 06:40 | NUR ---
CALL TO HOSPITALIST. SPOKE WITH DR. RAMESH REGARDING TELEMETRY VTACH EPISODE EARLIER IN SHIFT AND RECENT NOTIFICATION OF PVCS. NEW ORDER RECEIVED TO ADD ON MAGNESIUM LEVEL TO MORNING LABS. NO NEED FOR EKG AT THIS TIME PT ASYMPTOMATIC.
--- NOTE | 2024-11-06 07:23 | NUR ---
SHIFT SUMMARY NOC. PT POD 6 FOR R TOTAL HIP. PRINEO CLEAR DRESSING C/D/I, KISHOR WRAP TO RIGHT KNEE ALSO C/D/I. PT VOIDING URINE AND BEING TREATED FOR UTI. PT MEDICATED FOR PAIN WITH REPORTED RELIEF. PLEASE SEE PREVIOUS NOTES FOR TELEMETRY NOTIFICATIONS/HOSPITALIST CALL. PT RESTED WITH EYES CLOSED AND CALL LIGHT IN REACH.
[2024-11-06 07:26] VITALS: BP 132/48
[2024-11-06 15:14] VITALS: BP 115/60
--- NOTE | 2024-11-06 18:37 | NUR ---
SHIFT SUMMARY POD 6 R MARILIN. R KNEE ASPIRATION AND CULTURE 11/04/24. DRESSING C/D/I. A&O X4. PT AMBULATING WITH STANDBY ASSISST UTILIZING FRONT WHEELED WALKER. TOLERATING DIET WELL. DENIES N&V. PAIN MANAGED PER EMAR. MAKES NEEDS KNOWN. CALL LIGHT WITHIN REACH.
[2024-11-06 19:37] VITALS: BP 109/53
[2024-11-07 00:07] VITALS: BP 104/57
[2024-11-07 04:06] VITALS: BP 130/67
--- NOTE | 2024-11-07 05:20 | NUR ---
SHIFT SUMMARY ENA WAS ALERT AND FULLY ORIENTED ON ASSESSMENT. PT PAIN WELL MANAGED UNTIL AM. PT STATES HE SLEPT TOO SOUNDLY AND WOKE UP WITH BACK PAIN. INCISION DRESSING C/D/I. PT WIGGLES TOES. SENSATION INTACT TO EXTS. PEDAL PULSES PALPABLE. DENIES NEW OR WORSENING COMPLAINTS. NO ACUTE EVENTS THIS SHIFT.
[2024-11-07 05:42] LABS: BASOPHILS ABSOLUTE AUTO 0.03 K/mm3 (0.00-0.23); BASOPHILS PERCENT AUTO 1 % (0-2); EOSINOPHILS PERCENT AUTO 6 % (0-6); Hematocrit 30.2 % (37.0-53.0); Hemoglobin 9.8 g/dL (13.5-17.5); IMMATURE GRAN ABSOLUTE AUTO 0.05 K/mm3 (0.00-0.10); IMMATURE GRAN PERCENT AUTO 1 % (0-1); LYMPHOCYTES ABSOLUTE AUTO 0.83 K/mm3 (0.84-5.20); LYMPHOCYTES PERCENT AUTO 16 % (21-46); MONOCYTES ABSOLUTE AUTO 0.51 K/mm3 (0.16-1.47); MONOCYTES PERCENT AUTO 10 % (4-13); Mean Corpuscular HGB 28.4 pg (26.0-34.0); Mean Corpuscular HGB Conc 32.5 g/dL (31.5-36.5); Mean Corpuscular Volume 88 fL (80-100); Mean Platelet Volume 8.8 fL (9.1-12.4); NEUTROPHILS ABSOLUTE AUTO 3.63 K/mm3 (1.96-9.15); NEUTROPHILS PERCENT AUTO 68 % (41-73); Platelet Count 189 K/mm3 (150-400); RDW Coefficient Variation 14.7 % (11.7-14.2); RDW Standard Deviation 47.3 fL (35.1-46.3); Red Blood Cell Count 3.45 M/mm3 (4.30-5.90); White Blood Cell Count 5.35 K/mm3 (4.00-11.30)
[2024-11-07 06:14] LABS: Bun/Creatinine Ratio 26.1 (12.0-20.0); Calcium, Blood 8.7 mg/dL (8.5-10.1); Creatinine, Blood 0.84 mg/dL (0.60-1.20); Potassium, Blood 4.4 mmol/L (3.5-5.5)
[2024-11-07 07:17] VITALS: BP 111/60
[2024-11-07 11:40] VITALS: BP 117/65
[2024-11-07] MEDS ORDERED: AMOCLA875 PO (12:09)
[2024-11-07] MEDS ORDERED: COLCHICINE0.6 MG PO (12:09)
[2024-11-07] MEDS ORDERED: VISBIOME 112.51 EACH PO (12:10)
[2024-11-07] MEDS ORDERED: INSULANPEN SC (12:10)
[2024-11-07] MEDS ORDERED: Percocet 5-3251 EACH PO (12:11)
--- NOTE | 2024-11-07 14:04 | NUR ---
ASSUMED CARE VERY PLEASENT PT PT IS A/O WITH STABLE VITAL SIGNS, PT IS MOTIVATED TO GO HOME SO WAS ANQIOUS TO GET OOB FOR BREAKFAST, PT DEVONTE TRANSFER WELL AND WAS ABLE TO MAKE NEEDS KNOWN. PT/OT WORKED WITH PT ALSO AND AGREED HE WAS CAPABLE OF GOING HOME WITH HOME HEALTH. PT WAS ASSISTED BACK TO BED BY OT AND IS AWAITING ORDERS FOR DISCHARGE. RIGHT MARCOS JELENA IS C/D/I DISCHARGE ORDERS WERE WRITTEN AND EXPLAINED TO PT, MEDS FAXED TO PHARMACY PT DISCHARGED WITH ICE MACHINE.
== END 2024-11-07 14:19 | disposition home health service (06) | DRG 522 ==
LOC: ER 17:58 → ERHOLD 19:51 → SURS 19:51
PROVIDERS: Family Medicine; Internal Medicine; Nurse Practitioner Acute Care; Orthopaedic Surgery; ADMIT Internal Medicine
PROC: 0SR90JZ Replacement of Right Hip Joint with Synthetic Substitute, Open Approach (ICD-10-PCS; principal; 2024-10-31 12:30)
PROC: 0S9C3ZZ Drainage of Right Knee Joint, Percutaneous Approach (ICD-10-PCS; 2024-11-04)
DX: S72.001A Fracture of unspecified part of neck of right femur, initial encounter for closed fracture (principal); I50.32 Chronic diastolic (congestive) heart failure; I13.0 Hypertensive heart and chronic kidney disease with heart failure and stage 1 through stage 4 chronic kidney disease, or unspecified chronic kidney disease; N39.0 Urinary tract infection, site not specified; Z16.12 Extended spectrum beta lactamase (ESBL) resistance; N40.0 Benign prostatic hyperplasia without lower urinary tract symptoms; K21.9 Gastro-esophageal reflux disease without esophagitis; E78.00 Pure hypercholesterolemia, unspecified; E66.9 Obesity, unspecified; G89.4 Chronic pain syndrome; E11.22 Type 2 diabetes mellitus with diabetic chronic kidney disease; N18.30 Chronic kidney disease, stage 3 unspecified; I44.1 Atrioventricular block, second degree; G47.00 Insomnia, unspecified; G47.33 Obstructive sleep apnea (adult) (pediatric); R07.9 Chest pain, unspecified; M11.261 Other chondrocalcinosis, right knee; W01.0XXA Fall on same level from slipping, tripping and stumbling without subsequent striking against object, initial encounter; Y92.017 Garden or yard in single-family (private) house as the place of occurrence of the external cause; Z79.899 Other long term (current) drug therapy; Z79.84 Long term (current) use of oral hypoglycemic drugs; Z95.0 Presence of cardiac pacemaker; Z68.27 Body mass index [BMI] 27.0-27.9, adult
CPT/HCPCS: 36415; 71045; 72170; 73502; 73560-RT; 80048; 80053; 81001; 82947; 83036; 83735; 84484; 85025; 87070; 87075; 87077; 87086; 87186; 87205; 87428-QW; 89051; 89060; 93005; 93010; 94760; 96374; 96375; 97110; 97110-CQ; 97116; 97116-CQ; 97140; 97161; 97165; 97530; 97530-CQ; 97535; 99285-25; A6010; A9270; C1776; J0171; J0690; J0696; J0735; J1100; J1171; J1644; J1815; J1885; J2185; J2371; J2405; J2704; J2795; J3010; J7030; J7050; J7120